=== PATIENT | female | born 1945 | race Caucasian/White ===

== ENCOUNTER → 2022-02-24 | Outpatient (CLI) | payer MEDICARE ==
--- NOTE | 2022-02-24 12:33 | XR ---
EXAMINATION TYPE: XR Hip Complete LT DATE OF EXAM: 02/24/2022 COMPARISON: NONE HISTORY: Pain TECHNIQUE: 2 views submitted FINDINGS: There is no evidence of erosive change or acute fracture. Severe degenerative disc disease L5-S1 with diffuse osteopenia. There is concentric narrowing of the hip joint. Calcification along the lateral margin of the acetabulum associated with a chronic acetabular labral tear. No acute fracture. IMPRESSION: 1. Diffuse osteopenia with mild arthropathy. 2. Calcification along the lateral margin of the acetabulum can be associated with chronic acetabular labral tear.
--- NOTE | 2022-02-24 12:35 | XR ---
EXAM TYPE: LUMBAR SPINE X RAY SERIES COMPARISON: NONE HISTORY: Pain TECHNIQUE: 4 views are submitted. FINDINGS: Alignment is anatomic. The pedicles are intact. The transverse processes are intact. There is ninfa re degenerative disc disease with complete loss of disc space and vacuum disc levels L1-S1 with multi level facet arthropathy and foraminal encroachments. Vascular calcifications are seen and there is ca lcification of the aorta with a maximal dimension of 3 cm suggestive of an aneurysm IMPRESSION: 1. Severe degenerative disc disease with complete loss of disc space at all levels. Multilevel facet arthropathy, canal stenosis and foraminal protrusion is recommended. 2. Findings suspicious for a 3 cm infrarenal abdominal aortic aneurysm
== END | disposition home or self-care (01) ==
LOC: RADXRYALE 11:16
PROVIDERS: ATTEND Physician Assistant
DX: M51.36 Other intervertebral disc degeneration, lumbar region (principal); M47.817 Spondylosis without myelopathy or radiculopathy, lumbosacral region; M85.852 Other specified disorders of bone density and structure, left thigh
CPT/HCPCS: 72110; 73502

== ENCOUNTER 2022-07-27 07:31 | Inpatient (IN) | payer MEDICARE ==
[2022-07-27] MEDS ORDERED: SODIUM CHLORIDE 0.9% 1,000 ML IV ONE (07:36)
[2022-07-27] MEDS ORDERED: MORPHINE SULFATE 4 MG/ML SYRINGE IVP STA (07:38)
[2022-07-27] MEDS ORDERED: DIPH,PERTUS(ACELL)TETVAC-LF 0.5 ML VIAL IM ONE (07:38)
--- NOTE | 2022-07-27 07:50 | ED ---
General Adult HPI - General Stated complaint: fall Time Seen by Provider: 07/27/22 07:36 Source: RN notes reviewed, old records reviewed - History of Present Illness Initial comments: Patient is a 76-year-old female with past medical history remarkable for chronic cervical pain, chronic debility ambulates with a walker at baseline, hypertension, who presents emergency Department complaining of a fall. She has had multiple falls this week. Patient also fell on Monday of this week for a neighbor heard her call for help and came and checked on her and helped her up then. States that she trips and falls due to her walker. She states her mechanical falls. She does not have a syncopal or fainting spell. States she does bump her head but denies any loss of consciousness or injuries to her head. Denies any new back pain but does endorse chronic sacral pain. Endorses left knee pain, left femur pain, left hip pain is somewhat chronic. She doesn't abrasion over the left knee as well as some bruising. Unknown last tetanus shot. Denies any abdominal pain, chest pain. Denies any upper back pain. Denies any right leg pain. Patient states she fell sometime yesterday and no one was able to find her until today. She has been down for approximately 21 hours. Presents for further evaluation at this time. - Related Data Home Medications Medication Instructions Recorded Confirmed Atorvastatin [Lipitor] 10 mg PO DAILY 07/27/22 07/27/22 Lisinopril-Hctz 20-25 mg 1 tab PO HS 07/27/22 07/27/22 [Zestoretic 20-25] Metoprolol Succinate (ER) [Toprol 50 mg PO DAILY 07/27/22 07/27/22 Xl] Allergies Allergy/AdvReac Type Severity Reaction Status Date / Time Penicillins Allergy Rash/Headac Verified 07/27/22 08:10 he Review of Systems ROS Statement: Those systems with pertinent positive or pertinent negative responses have been documented in the HPI. Review of Systems: CONST: Denies fever EYES: Denies blurry vision ENT: Denies nasal congestion C/V: Denies Chest pain RESP: Denies shortness of breath GI: Denies abdominal pain : Denies dysuria SKIN: Denies rash. MSK: Endorses sacral pain, left leg pain. NEURO: Denies headache ROS Other: All systems not noted in ROS Statement are negative. General Exam - General Exam Comments Initial Comments: General: Appears in mild to moderate distress. Secondary to left leg pain. HEAD: Normal with no signs of head trauma. EYES: PERRLA, EOMI, conjunctiva normal, no discharge. ENT: Hearing grossly intact, normal oropharynx. Dry mucous membranes. RESPIRATORY: Clear breath sounds bilaterally. No wheezes, rales, or rhonchi. C/V: Regular rate and rhythm. S1 and S2 auscultated, no edema, peripheral pulses 2+ and intact throughout ABD: Abd is soft, nontender, nondistended EXT: Reduced range of motion of the left knee secondary to pain. It is swollen. There is some bruising and some skin breakdown/tears over the anterior aspect of the left knee. Tenderness to palpation all over the knee, left femur, left hip. Chronic inferior sacral pain on palpation. States this is somewhat at her baseline. Pelvis is stable. No tenderness to palpation of the thoracic or cervical spines. No other obvious injuries. SKIN: No rashes or lesions observed on exposed skin. NEURO: Alert and oriented x 4. Cranial nerves II-XII intact. No focal sensory or strength deficits. GCS of 15. NIH is 0. Course Vital Signs 07/27/22 07/27/22 07/27/22 07:45 10:00 11:00 Temperature 98.0 F Pulse Rate 94 106 H 87 Respiratory 18 16 20 Rate Blood Pressure 147/80 167/90 151/77 O2 Sat by Pulse 97 98 Oximetry 07/27/22 07/27/22 13:27 14:11 Temperature 99.0 F Pulse Rate 87 87 Respiratory 16 16 Rate Blood Pressure 146/81 123/70 O2 Sat by Pulse 98 96 Oximetry Medical Decision Making - Medical Decision Making Was pt. sent in by a medical professional or institution (, PA, ORACLE APPLICATIONS ANALYST, urgent care, hospital, or penitentiary...) When possible be specific @ -No Did you speak to anyone other than the patient for history (EMS, parent, family, police, friend...)? What history was obtained from this source @ -No Did you review nursing and triage notes (agree or disagree)? Why? @ -I reviewed and agree with nursing and triage notes Were old charts reviewed (outside hosp., previous admission, EMS record, old EKG, old radiological studies, urgent care reports/EKG's, penitentiary records)? Report findings @ -No old charts were reviewed Differential Diagnosis (chest pain, altered mental status, abdominal pain women, abdominal pain men, vaginal bleeding, weakness, fever, dyspnea, syncope, hea dache, dizziness, GI bleed, back pain, seizure, CVA, palpatations, mental health, musculoskeletal)? @ -Bone fracture, contusion, intracranial injury, dehydration, acute kidney inj ury, rhabdomyolysis, dehydration, muscle strains, muscle sprains, mechanical fall. This list is not all inclusive. EKG interpreted by me (3pts min.). @ -As above X-rays interpreted by me (1pt min.). @ -X-rays of the chest, pelvis, left lower extremity showed an obvious left femoral neck impacted fracture. A later fracture of the left foot due to pain on reevaluation was negative for any obvious acute fracture. CT interpreted by me (1pt min.). @ -CT imaging the brain, cervical spine negative for any obvious acute injury or process. CT lumbar spine reveals chronic degenerative changes with no acute process. U/S interpreted by me (1pt. min.). @ -None done What testing was considered but not performed or refused? (CT, X-rays, U/S, labs)? Why? @ -None What meds were considered but not given or refused? Why? @ -None Did you discuss the management of the patient with other professionals (professionals i.e. , PA, ORACLE APPLICATIONS ANALYST, lab, RT, psych nurse, social services counselor, storage wharfage clerk, teacher, information assurance officer, block and case maker)? Give summary @ -Discuss the case with neck branches Dr. Myers's was scrubbed into a surgical case. She was accepted as an admission. I also discussed the case with Dr. Luna for medical management. Was smoking cessation discussed for >3mins.? @ -No Was critical care preformed (if so, how long)? @ -Yes, 35 minutes. Were there social determinants of health that impacted care today? How? (Homelessness, low income, unemployed, alcoholism, drug addiction, transportation, low edu. Level, literacy, decrease access to med. care, care home, rehab)? @ -No Was there de-escalation of care discussed even if they declined (Discuss DNR or withdrawal of care, Hospice)? DNR status @ -No What co-morbidities impacted this encounter? (DM, HTN, Smoking, COPD, CAD, Cancer, CVA, ARF, Chemo, Hep., AIDS, mental health diagnosis, sleep apnea, morbid obesity)? @ -Debility Was patient admitted / discharged? Hospital course, mention meds given and route, prescriptions, significant lab abnormalities, going to OR and other pe rtinent info. @ -Based on the patient's presentation and physical exam, she presents following a mechanical fall at home. Is complaining of acute on chronic left lower extremity pain. Appears to the left knee injury. We'll obtain CT brain, C-spine, as well as x-rays of the pelvis, left lower extremity. She was in agreement this plan. Basic labs to be obtained as she does appear dehydrated including a creatinine kinase. She'll be given IV fluids, a tetanus booster, as well as IV analgesia medications. Vital signs within acceptable limits. Patient was in agreement this plan. Patient's labs are remarkable for an elevated cranial kinase of 919. Patient appears dehydrated on labs otherwise. Otherwise no significant findings. Imaging negative for any acute traumatic injury except for the left femoral neck impacted fracture. I updated the patient. She remains having intact peripheral pulses and sensation. She'll be admitted to the hospital. I spoke with orthopedic surgery internal medicine nurse practitioner who accepted the patient to their service. I spoke with Ganga Galindo who answered for Dr. Myers who was scrubbed into a surgical case. I spoke with the medicine team Dr. Garcia to be consulted for medical management. They were in agreement with the plan. Undiagnosed new problem with uncertain prognosis? @ -No Drug Therapy requiring intensive monitoring for toxicity (Heparin, Nitro, Insulin, Cardizem)? @ -No Were any procedures done? @ -No Diagnosis/symptom? @ -Fall Acute, or Chronic, or Acute on Chronic? @ -Acute Uncomplicated (without systemic symptoms) or Complicated (systemic symptoms)? @ -Complicated Side effects of treatment? @ -none Exacerbation, Progression, or Severe Exacerbation] @ -no Poses a threat to life or bodily function? @ -no Diagnosis/symptom? @ -Left impacted femoral neck fracture Acute, or Chronic, or Acute on Chronic? @ -Acute Uncomplicated (without systemic symptoms) or Complicated (systemic symptoms)? @ -Complicated Side effects of treatment? @ -none Exacerbation, Progression, or Severe Exacerbation] @ -no Poses a threat to life or bodily function? @ -no Diagnosis/symptom? @ -Dehydration Acute, or Chronic, or Acute on Chronic? @ -Acute Uncomplicated (without systemic symptoms) or Complicated (systemic symptoms)? @ -Uncomplicated Side effects of treatment? @ -none Exacerbation, Progression, or Severe Exacerbation] @ -no Poses a threat to life or bodily function? @ -no Diagnosis/symptom? @ -Elevated creatinine kinase Acute, or Chronic, or Acute on Chronic? @ -Acute Uncomplicated (without systemic symptoms) or Complicated (systemic symptoms)? @ -Uncomplicated Side effects of treatment? @ -none Exacerbation, Progression, or Severe Exacerbation] @ -no Poses a threat to life or bodily function? @ -If untreated can result in Significant Morbidity and Mortality. - Lab Data Result diagrams: 07/27/22 08:06 07/27/22 08:06 Lab Results 07/27/22 07/27/22 07/27/22 Range/Units 08:06 08:06 08:06 WBC 9.2 (3.8-10.6) k/uL RBC 4.82 (3.80-5.40) m/uL Hgb 15.0 (11.4-16.0) gm/dL Hct 44.5 (34.0-46.0) % MCV 92.4 (80.0-100.0) fL MCH 31.2 (25.0-35.0) pg MCHC 33.8 (31.0-37.0) g/dL RDW 13.8 (11.5-15.5) % Plt Count 281 (150-450) k/uL MPV 8.2 Neutrophils % 86 % Lymphocytes % 6 % Monocytes % 6 % Eosinophils % 1 % Basophils % 0 % Neutrophils # 8.0 H (1.3-7.7) k/uL Lymphocytes # 0.6 L (1.0-4.8) k/uL Monocytes # 0.6 (0-1.0) k/uL Eosinophils # 0.0 (0-0.7) k/uL Basophils # 0.0 (0-0.2) k/uL PT 10.6 (9.0-12.0) sec INR 1.0 (<1.2) APTT 20.9 L (22.0-30.0) sec Sodium 138 (137-145) mmol/L Potassium 3.9 (3.5-5.1) mmol/L Chloride 101 (98-107) mmol/L Carbon Dioxide 23 (22-30) mmol/L Anion Gap 14 mmol/L BUN 27 H (7-17) mg/dL Creatinine 0.88 (0.52-1.04) mg/dL Est GFR (CKD-EPI)AfAm 75 (>60 ml/min/1.73 sqM) Est GFR (CKD-EPI)NonAf 65 (>60 ml/min/1.73 sqM) Glucose 167 H (74-99) mg/dL Calcium 9.6 (8.4-10.2) mg/dL Total Bilirubin 5.9 H (0.2-1.3) mg/dL AST 51 H (14-36) U/L ALT 28 (4-34) U/L Alkaline Phosphatase 132 H (38-126) U/L Creatine Kinase 919 H (30-135) U/L Total Protein 7.4 (6.3-8.2) g/dL Albumin 4.2 (3.5-5.0) g/dL Urine Color Urine Appearance (Clear) Urine pH (5.0-8.0) Ur Specific [place] (1.001-1.035) Urine Protein (Negative) Urine Glucose (UA) (Negative) Urine Ketones (Negative) Urine Blood (Negative) Urine Nitrite (Negative) Urine Bilirubin (Negative) Urine Urobilinogen (<2.0) mg/dL Ur Leukocyte Esterase (Negative) Urine RBC (0-5) /hpf Urine WBC (0-5) /hpf Urine Bacteria (None) /hpf Hyaline Casts (0-2) /lpf Urine Mucus (None) /hpf Blood Type Confirm 07/27/22 07/27/22 Range/Units 08:06 08:06 WBC (3.8-10.6) k/uL RBC (3.80-5.40) m/uL Hgb (11.4-16.0) gm/dL Hct (34.0-46.0) % MCV (80.0-100.0) fL MCH (25.0-35.0) pg MCHC (31.0-37.0) g/dL RDW (11.5-15.5) % Plt Count (150-450) k/uL MPV Neutrophils % % Lymphocytes % % Monocytes % % Eosinophils % % Basophils % % Neutrophils # (1.3-7.7) k/uL Lymphocytes # (1.0-4.8) k/uL Monocytes # (0-1.0) k/uL Eosinophils # (0-0.7) k/uL Basophils # (0-0.2) k/uL PT (9.0-12.0) sec INR (<1.2) APTT (22.0-30.0) sec Sodium (137-145) mmol/L Potassium (3.5-5.1) mmol/L Chloride (98-107) mmol/L Carbon Dioxide (22-30) mmol/L Anion Gap mmol/L BUN (7-17) mg/dL Creatinine (0.52-1.04) mg/dL Est GFR (CKD-EPI)AfAm (>60 ml/min/1.73 sqM) Est GFR (CKD-EPI)NonAf (>60 ml/min/1.73 sqM) Glucose (74-99) mg/dL Calcium (8.4-10.2) mg/dL Total Bilirubin (0.2-1.3) mg/dL AST (14-36) U/L ALT (4-34) U/L Alkaline Phosphatase (38-126) U/L Creatine Kinase (30-135) U/L Total Protein (6.3-8.2) g/dL Albumin (3.5-5.0) g/dL Urine Color Yellow Urine Appearance Clear (Clear) Urine pH 5.5 (5.0-8.0) Ur Specific [place] 1.024 (1.001-1.035) Urine Protein 2+ H (Negative) Urine Glucose (UA) 1+ H (Negative) Urine Ketones 3+ H (Negative) Urine Blood Moderate H (Negative) Urine Nitrite Negative (Negative) Urine Bilirubin Negative (Negative) Urine Urobilinogen <2.0 (<2.0) mg/dL Ur Leukocyte Esterase Negative (Negative) Urine RBC 5 (0-5) /hpf Urine WBC 1 (0-5) /hpf Urine Bacteria Rare H (None) /hpf Hyaline Casts 1 (0-2) /lpf Urine Mucus Rare H (None) /hpf Blood Type Confirm A Positive - EKG Data -: EKG Interpreted by Wy EKG Comments: 12-lead Electrocardiogram Interpretation Note EKG was reviewed and interpreted by myself. 12-lead ECG performed at 0748 is interpreted by me as revealing sinus tachycardia at a rate of 113 beats per minute. Left axis deviation. TN interval is 151 ms, QRS duration is 85 ms, QTc is 414 ms.. There were no ST or T wave abnormalities to suggest myocardial ischemia or injury. R wave progression across the precordium was satisfactory. By my interpretation this EKG is non-diagnostic for acute ischemia. No prior EKGs for comparison. Disposition Clinical Impression: Fall, Dehydration, Fracture of femoral neck, left, Elevated creatine kinase Disposition: ADMITTED IP TO THIS HOSP Condition: Stable Time of Disposition: 09:30
[2022-07-27 08:22] LABS: Basophils % (A) 0 %; Eosinophils % (A) 1 %; HCT 44.5 % (34.0-46.0); Lymphocytes # (A) 0.6 k/uL (1.0-4.8); Lymphocytes % (A) 6 %; MCH 31.2 pg (25.0-35.0); MCHC 33.8 g/dL (31.0-37.0); MCV 92.4 fL (80.0-100.0); Mean Platelet Volume 8.2; Monocytes # (A) 0.6 k/uL (0-1.0); Monocytes % (A) 6 %; Neutrophils % (A) 86 %; Platelet Count 281 k/uL (150-450); RBC 4.82 m/uL (3.80-5.40); RDW 13.8 % (11.5-15.5); WBC 9.2 k/uL (3.8-10.6)
[2022-07-27 08:30] LABS: Albumin 4.2 g/dL (3.5-5.0); Calcium 9.6 mg/dL (8.4-10.2); Potassium 3.9 mmol/L (3.5-5.1); Total Bilirubin 5.9 mg/dL (0.2-1.3); Total Protein 7.4 g/dL (6.3-8.2)
[2022-07-27 08:35] LABS: Prothrombin Time 10.6 sec (9.0-12.0)
--- NOTE | 2022-07-27 08:37 | CT ---
EXAMINATION TYPE: CT brain ramiro collazo DATE OF EXAM: 07/27/2022 COMPARISON: NONE HISTORY: Fall injury with headache and neck pain CT DLP: 1374.3 mGycm. Automated Exposure Control for Dose Reduction was Utilized. TECHNIQUE: CT scan of the head and cervical spine are performed without contrast. FINDINGS: There is no acute intracranial hemorrhage or midline shift identified. Mild ventricular a nd sulcal prominence with mild to moderate sulcal prominence greatest over the bilateral frontal lobe s. There is fairly severe low-attenuation in the deep and periventricular white matter. The calvarium is intact. The globes are intact and the visualized sinuses are clear. Cervical spine is visualized in its entirety from C1 through upper thoracic levels and demonstrates s atisfactory alignment without evidence of acute fracture or dislocation. Prevertebral soft tissue ap pears within normal limits. The C1-C2 articulation is within normal limits on the coronal images. V ertebral body heights are maintained. There is [id number] disc space narrowing with moderate po sterior spurring at C4-C5 level. Review of axial images shows multilevel uncovertebral facet degenerative changes contribute to multil evel bilateral neural foraminal narrowing fairly severe in appearance of bilateral C3-C4 and C4-C5 an d right C5-C6 and C6-C7 levels. There is posterior spur disc complex and posterior spurring effaces t he anterior thecal sac at C3-C4 and C4-C5 levels. Thyroid gland appears within normal limits. Lung ap ices show no pneumothorax. IMPRESSION: 1. There is no acute fracture or dislocation evident in the cervical spine. 2. No acute intracranial hemorrhage or midline shift is seen. [id number] diffuse cerebral atrop hy greatest over the bilateral frontal lobes and severe nonspecific white matter changes favor produc t of chronic small vessel ischemia are noted.
[2022-07-27 08:40] LABS: Partial Thromboplastin Time 20.9 sec (22.0-30.0)
--- NOTE | 2022-07-27 08:43 | CT ---
EXAMINATION TYPE: CT lumbar spine wo con DATE OF EXAM: 07/27/2022 8:29 AM COMPARISON: Lumbar spine x-ray February 24, 2022 HISTORY: Fall injury with low back pain CT DLP: 665.7 mGycm Automated exposure control for dose reduction was used. Unenhanced CT of the lumbar spine was performed. Bone and soft tissue window settings are submitted as well as coronal and sagittal reconstructions. There are 5 lumbar type vertebra redemonstrated. There is persistent levoconvex scoliosis centered at L4-L5 level. Vertebral body heights are preserved. There is moderate to severe multilevel disc space narrowing and multilevel vacuum disc phenomenon redemonstrated. There is moderate multilevel anterio r and lateral spurring redemonstrated. Axial images at T12-L1 show [id number] facet arthropathy effacing the posterior thecal sac. Axial images at L1-L2 level shows moderate broad-based disc bulge effacing the anterior thecal sac an d moderate facet arthropathy effacing the posterolateral thecal sac. Axial images at L2-L3 level show posterior spurring effacing the anterior thecal sac and moderate fac et arthropathy effacing the posterolateral thecal sac. There is likely some left-sided neural foramin al narrowing. Axial images at L3-L4 level show moderate to severe right facet arthropathy effacing the right latera l thecal sac. There is mild broad disc bulge effacing the anterior thecal sac. Bilateral neural dontrell inal narrowing is felt present. Axial images at the L4-L5 level mild to moderate broad disc bulge effacing the anterior thecal sac. T here is [id number] right greater than left facet arthropathy and ligamentum flavum hypertrophy effacing the posterolateral thecal sac. Bilateral neural foraminal narrowing is present. Axial images at L5-S1 level shows moderate facet arthropathy bilaterally. There is posterior spur dis c complex. There is bilateral neural foraminal narrowing. There is large exophytic thin-walled renal cyst partially imaged measuring at least 9.5 cm in size. T here is a smaller 3.6 cm simple appearing thin-walled cyst laterally lower pole of the left kidney. T here is moderate calcified plaque of the ectatic abdominal aorta with small focal aneurysm at 3.0 cm transversely axial image 43 noted. IMPRESSION: No acute fracture or dislocation in the lumbar spine. Scoliosis and multilevel degenerati ve changes are noted as detailed above
--- NOTE | 2022-07-27 09:23 | XR ---
EXAMINATION TYPE: XR femur LT, XR tibia fibula LT, XR Hip LT and AP Pelvis, XR knee limited LT DATE OF EXAM: 07/27/2022 CLINICAL HISTORY: Pelvic and left hip and leg along with knee pain after fall injury. TECHNIQUE: A single AP view of the pelvis is obtained. Two views of the left hip and femur and leg an d knee are obtained. COMPARISON: Prior left hip x-ray February 24, 2022. FINDINGS: There is acute comminuted impacted displaced fracture through the basicervical region of the femoral neck left proximal femur. No additional acute displaced fracture in the pelvis. Metallic right hip pr osthesis is partially imaged. No acute displaced fracture in the remainder of the left femur. Overlying soft tissue is unremarkable . Severe narrowing medial tibiofemoral compartment on the right knee. There are posterior round ossif ications possible bony formation within popliteal cyst. No acute displaced fracture in the left knee. Images of the left leg show no acute displaced fracture. Osseous structures are demineralized. Visual ized left ankle joint is within normal limits. Overlying soft tissue is unremarkable. IMPRESSION: There is acute impacted femoral neck fracture left proximal femur.
[2022-07-27] MEDS ORDERED: SODIUM CHLORIDE 0.9% 1,000 ML IV STA ×2 (09:25)
--- NOTE | 2022-07-27 09:27 | XR ---
EXAMINATION TYPE: XR chest 1V DATE OF EXAM: 07/27/2022 COMPARISON: NONE HISTORY: Pain TECHNIQUE: Single frontal view of the chest is obtained. FINDINGS: There is no focal air space opacity, pleural effusion, or pneumothorax seen. The cardiac silhouette size is within normal limits. The osseous structures are intact. Arthropathy of the shou lders. Diffuse osteopenia. A chronic deformity of the posterior lateral right rib cage. Calcification s in the axilla are noted. IMPRESSION: No acute process.
[2022-07-27] MEDS ORDERED: NALOXONE 0.4 MG/ML 1 ML VIAL IV PRN (09:38)
[2022-07-27 10:48] LABS: Appearance,Urine Clear (Clear); Bacteria,Urine Rare /hpf; Bilirubin,Urine Negative (Negative); Blood,Urine Moderate (Negative); Color,Urine Yellow; Glucose,Urine (UA) 1+ (Negative); Hyaline Casts,Urine 1 /lpf (0-2); Leukocyte Esterase,Urine Negative (Negative); Mucus,Urine Rare /hpf; Nitrite,Urine Negative (Negative); PH, Urine 5.5 (5.0-8.0); Protein,Urine 2+ (Negative); RBC,Urine 5 /hpf (0-5); Specific Gravity,Urine 1.024 (1.001-1.035); Urobilinogen,Urine <2.0 mg/dL (<2.0); WBC,Urine 1 /hpf (0-5)
[2022-07-27 10:52] LABS: Ketones,Urine 3+ (Negative)
--- NOTE | 2022-07-27 11:20 | XR ---
EXAMINATION TYPE: XR foot limited LT DATE OF EXAM: 07/27/2022 COMPARISON: NONE there is arthropathy of the MTP and DIP joints first digit. Distal phalanges not wel l seen due to flexion positioning. HISTORY: Pain TECHNIQUE: Two views are submitted. FINDINGS: Diffuse osteopenia. Subcutaneous edema. No definite acute fracture. IMPRESSION: 1. Diffuse osteopenia with no definite acute fracture
--- NOTE | 2022-07-27 11:54 | P.HPOR ---
History of Present Illness H&P Date: 07/27/22 Chief Complaint: Left femoral neck fracture Patient is a 76-year-old female was brought in to [facility] emergency room today after being found on the ground for over a day. Patient apparently fell in her home, she was unable to contact anyone, and they were found her earlier this morning. Patient states that she did have a fall on Monday required to have helped into a chair, she then fell again later Monday. Patient noted immediate pain and deformity to the left lower extremity, she is brought to the hospital by EMS for further evaluation. Multiple lab tests and imaging test were done. Images were notable for a impacted left femoral neck fracture. I was contacted by the emergency room staff regarding the patient. I was able to review the images and my attending Dr. Myers who was scrubbed and the surgery at this time. Patient was admi tted under our orthopedic care with plans for likely surgical intervention. Patient was evaluated at bedside, she is resting comfortably. She notes notable discomfort in the left lower extremity with movement. She's having no other orthopedic complaints at this time. She denies any new onset cervical, thoracic or lumbar pain. She does have a history of right hip surgery that was done about 6 or 7 years ago for a fracture. Patient does live alone, she utilizes a walker for ambulation. She does still drive occasionally she states per Review of Systems Constitutional: Reports as per HPI Past Medical History Past Medical History: Hypertension History of Any Multi-Drug Resistant Organisms: None Reported Past Surgical History: Orthopedic Surgery Past Psychological History: No Psychological Hx Reported Smoking Status: Never smoker Past Alcohol Use History: None Reported Past Drug Use History: None Reported Medications and Allergies Home Medications Medication Instructions Recorded Confirmed Type Atorvastatin [Lipitor] 10 mg PO DAILY 07/27/22 07/27/22 History Lisinopril-Hctz 20-25 mg 1 tab PO HS 07/27/22 07/27/22 History [Zestoretic 20-25] Metoprolol Succinate (ER) [Toprol 50 mg PO DAILY 07/27/22 07/27/22 History Xl] Allergies Allergy/AdvReac Type Severity Reaction Status Date / Time Penicillins Allergy Rash/Headac Verified 07/27/22 08:10 he Physical Examination Left lower extremity: Obvious shortening and external rotation of the extremity is noted when compared to the contralateral side. There is no obvious open lesions or sores present throughout the extremity No significant areas of ecchymosis or soft tissue swelling present Tenderness with palpation of the proximal femur as noted, logroll maneuver reproduces pain. She's unable to straight leg raise at this time Range of motion of the knee was not assessed due to pain at the hip, no significant tenderness with palpation surrounding the knee, lower leg, foot or ankle Plantar flexion, dorsiflexion, EHL, FHL are intact Her sensory exam to light touch is intact about extremity, her skin is warm to touch Results - Labs Labs: Abnormal Lab Results - Last 24 Hours (Table) 07/27/22 07/27/22 07/27/22 Range/Units 08:06 08:06 08:06 Neutrophils # 8.0 H (1.3-7.7) k/uL Lymphocytes # 0.6 L (1.0-4.8) k/uL APTT 20.9 L (22.0-30.0) sec BUN 27 H (7-17) mg/dL Glucose 167 H (74-99) mg/dL Total Bilirubin 5.9 H (0.2-1.3) mg/dL AST 51 H (14-36) U/L Alkaline Phosphatase 132 H (38-126) U/L Creatine Kinase 919 H (30-135) U/L Urine Protein (Negative) Urine Glucose (UA) (Negative) Urine Ketones (Negative) Urine Blood (Negative) Urine Bacteria (None) /hpf Urine Mucus (None) /hpf 07/27/22 Range/Units 08:06 Neutrophils # (1.3-7.7) k/uL Lymphocytes # (1.0-4.8) k/uL APTT (22.0-30.0) sec BUN (7-17) mg/dL Glucose (74-99) mg/dL Total Bilirubin (0.2-1.3) mg/dL AST (14-36) U/L Alkaline Phosphatase (38-126) U/L Creatine Kinase (30-135) U/L Urine Protein 2+ H (Negative) Urine Glucose (UA) 1+ H (Negative) Urine Ketones 3+ H (Negative) Urine Blood Moderate H (Negative) Urine Bacteria Rare H (None) /hpf Urine Mucus Rare H (None) /hpf H & H 07/27/22 Range/Units 08:06 Hgb 15.0 (11.4-16.0) gm/dL Hct 44.5 (34.0-46.0) % Coagulation 07/27/22 Range/Units 08:06 INR 1.0 (<1.2) Result Diagrams: 07/27/22 08:06 07/27/22 08:06 - Diagnostic results Hip x-ray: report reviewed, image reviewed (Images reviewed of the AP pelvis along with left hip. Images demonstrate an impacted and displaced left femoral neck fracture. Right hip prosthesis appears intact with no obvious lucencies) Knee x-ray: report reviewed, image reviewed (Left knee x-rays were reviewed, no acute fractures or dislocations. Severe osteoarthritis is noted throughout) Assessment and Plan Assessment: Left femoral neck fracture Left knee osteoarthritis Status post recent fall, significant time down on the ground Other medical comorbidities Plan: After discussion with attending Dr. Myers, patient was admitted under orthopedic care with plan for surgical intervention I did discuss treatment options today with patient at bedside, just to include the preoperative, perioperative postoperative period we discussed risk and benefits, this include but not exclude blood loss, infection, development of blood clots, neurovascular injury, pain and stiffness, inadequate healing, possible need for further surgeries. Patient is a good understanding and would like to proceed. Plan is to proceed with a direct anterior total hip arthroplasty on the left side, we are planning for surgery from 07/28/2022. Consent to be obtained prior to procedure Medical recommendations Nothing by mouth after midnight Nonweightbearing left lower extremity at this time Maintain urinary catheter at this time Pain control, oral and IV as needed. Will utilize multiple stool softeners to help avoid constipation DVT prophylaxis, we'll begin subcu medication PT/OT after surgery Anticipate subcu rehab placement Time with Patient: Less than 30
[2022-07-27] MEDS ORDERED: traMADol 50 MG TAB PO PRN (12:24)
[2022-07-27] MEDS: MORPHINE SULFATE 4 MG/ML SYRINGE IV PRN (15:12)
--- NOTE | 2022-07-27 15:22 | P.HPIM ---
History of Present Illness H&P Date: 07/27/22 Patient is a 76-year-old female with history of hypertension and dyslipidemia presenting after a mechanical fall. She claims that she was doing well until Monday when she had a mechanical fall. She was able to get help from her friend and was able to get inside the house. She had another mechanical fall on Monday night in her mobile home. She was on the floor from Monday night till Monday morning, when she screamed for help and her neighbor had come in to help. She normally ambulates with a walker. She denies any chest pain, shortness of breath, abdominal pain, nausea, vomiting, diarrhea, constipation, or urinary complaints. She feels like she is bruised on her left hip area. In the ED, vital signs were within normal limits. Laboratory workup was significant for WBC of 9.2, hemoglobin 15, sodium 138, potassium 3.9, BUN 27, creatinine 0.88, glucose 167, total bili 5.9, AST 51, ALP 132, CK 919, urinalysis significant for elevated ketones, blood, RBCs only 5. Patient was started on IV fluids. Head CT and cervical CT showed no acute fracture. Lumbar CT showed no acute fractures, left hip x-ray showed acute impacted femoral neck fracture. Left foot x-ray showed no acute fracture. Chest x-ray personally interpreted showed no acute process. Patient seen and examined at bedside. Pertinent positives and negatives as discussed in HPI, a complete review of systems was performed and all other systems are negative. Vital signs reviewed General: nontoxic, no distress, appears at stated age Derm: warm, dry Head: atraumatic, normocephalic, symmetric Eyes: EOMI, no lid lag, anicteric sclera, pupils equal round reactive to light ENT: Nose and ears atraumatic Neck: No thyromegaly, supple Mouth: no lip lesion, mucus membranes moist Cardiovascular: S1S2 reg, no murmur, no edema Lungs: clear to auscultation bilateral, no rhonchi, no rales, no wheeze, no accessory muscle use Abdominal: soft, nontender to palpation, no guarding, no appreciable organ omegaly Ext: no gross muscle atrophy, unable to move left lower extremity due to pain, externally rotated Neuro: CN II-XII grossly intact Psych: Alert, oriented, appropriate affect Assessment/Plan: Active: Mild rhabdomyolysis Hyperbilirubinemia Elevated AST and ALP Mild dehydration Mechanical fall Acute impacted left femoral neck fracture -Continue normal saline at 130 mL an hour -Repeat CK ordered, trend until it peaks -Hyperbilirubinemia, elevated AST and ALP the setting of rhabdomyolysis and acute fracture -Continue to monitor renal function, CMP ordered for tomorrow -Orthopedics consulted, note reviewed: Likely surgical intervention on 07/28 -Hydrochlorothiazide being held, in anticipation of surgery -Pain control with IV morphine 4 mg every 4 hours as needed, oral [place] 5 every 6 hours as needed, Tylenol 650 mg oral every 6 hours as needed, tramadol 50 mg oral 4 times a day as needed Chronic: Hypertension Dyslipidemia The patient is admitted with an anticipated greater than 2 midnight stay for evaluation of acute impacted left femoral fracture. Case discussed with ED attending. Surrogate decision-maker: Friend CODE STATUS: Full code DVT prophylaxis: Subcu heparin Anticipated discharge date: Pending clinical course Anticipated discharge place: Pending clinical course A total of 55 minutes was spent on the care of this complex patient more than 50% of the time was spent in counseling and care coordination. Past Medical History Past Medical History: Hypertension History of Any Multi-Drug Resistant Organisms: None Reported Past Surgical History: Orthopedic Surgery Past Psychological History: No Psychological Hx Reported Smoking Status: Never smoker Past Alcohol Use History: None Reported Past Drug Use History: None Reported Medications and Allergies Home Medications Medication Instructions Recorded Confirmed Type Atorvastatin [Lipitor] 10 mg PO DAILY 07/27/22 07/27/22 History Lisinopril-Hctz 20-25 mg 1 tab PO HS 07/27/22 07/27/22 History [Zestoretic 20-25] Metoprolol Succinate (ER) [Toprol 50 mg PO DAILY 07/27/22 07/27/22 History Xl] Allergies Allergy/AdvReac Type Severity Reaction Status Date / Time Penicillins Allergy Rash/Headac Verified 07/27/22 08:10 he Physical Exam Vitals: Vital Signs Temp Pulse Resp BP Pulse Ox 07/27/22 15:10 98.6 F 86 17 124/69 98 07/27/22 14:11 87 16 123/70 96 07/27/22 13:27 99.0 F 87 16 146/81 98 07/27/22 11:00 87 20 151/77 07/27/22 10:00 106 H 16 167/90 98 07/27/22 07:45 98.0 F 94 18 147/80 97 Intake and Output 07/27/22 07/27/22 07/27/22 06:59 14:59 22:59 Other: Weight 72.575 kg Results CBC & Chem 7: 07/27/22 08:06 07/27/22 08:06 Labs: Abnormal Lab Results - Last 24 Hours (Table) 07/27/22 07/27/22 07/27/22 Range/Units 08:06 08:06 08:06 Neutrophils # 8.0 H (1.3-7.7) k/uL Lymphocytes # 0.6 L (1.0-4.8) k/uL APTT 20.9 L (22.0-30.0) sec BUN 27 H (7-17) mg/dL Glucose 167 H (74-99) mg/dL Total Bilirubin 5.9 H (0.2-1.3) mg/dL AST 51 H (14-36) U/L Alkaline Phosphatase 132 H (38-126) U/L Creatine Kinase 919 H (30-135) U/L Urine Protein (Negative) Urine Glucose (UA) (Negative) Urine Ketones (Negative) Urine Blood (Negative) Urine Bacteria (None) /hpf Urine Mucus (None) /hpf 07/27/22 Range/Units 08:06 Neutrophils # (1.3-7.7) k/uL Lymphocytes # (1.0-4.8) k/uL APTT (22.0-30.0) sec BUN (7-17) mg/dL Glucose (74-99) mg/dL Total Bilirubin (0.2-1.3) mg/dL AST (14-36) U/L Alkaline Phosphatase (38-126) U/L Creatine Kinase (30-135) U/L Urine Protein 2+ H (Negative) Urine Glucose (UA) 1+ H (Negative) Urine Ketones 3+ H (Negative) Urine Blood Moderate H (Negative) Urine Bacteria Rare H (None) /hpf Urine Mucus Rare H (None) /hpf
[2022-07-27] MEDS ORDERED: HEPARIN SODIUM,PORCINE/PF 5,000 UNIT/0.5 ML SYRINGE SQ SCH ×2 (16:00→21:00)
[2022-07-27] MEDS: HYDROcodone/APAP 5-325MG 1 EACH TAB PO PRN (20:34)
[2022-07-27] MEDS ORDERED: LISINOPRIL-HCTZ 20-25 MG 1 EACH TAB PO SCH (21:00)
[2022-07-28] MEDS: HYDROcodone/APAP 5-325MG 1 EACH TAB PO PRN ×2 (02:15→21:35)
[2022-07-28] MEDS: lisinopriL 20 MG TAB PO SCH (09:05)
[2022-07-28] MEDS: MORPHINE SULFATE 4 MG/ML SYRINGE IV PRN (09:05)
[2022-07-28] MEDS: ATORVASTATIN 10 MG TAB PO SCH (09:05)
[2022-07-28] MEDS: METOPROLOL SUCCINATE (ER) 50 MG TAB.ER.24H PO SCH (09:05)
[2022-07-28 09:35] LABS: Basophils # (A) 0.04 X 10*3/uL (0.00-0.10); Basophils % (A) 0.5 %; Eosinophils # (A) 0.18 X 10*3/uL (0.04-0.35); Eosinophils % (A) 2.4 %; HCT 35.6 % (37.2-46.3); Immature Grans, Automated 0.1 %; Lymphocytes # (A) 1.46 X 10*3/uL (0.90-5.00); Lymphocytes % (A) 19.5 %; MCH 31.7 pg (27.0-32.0); MCHC 33.7 g/dL (32.0-37.0); MCV 93.9 fL (80.0-97.0); Mean Platelet Volume 10.9 fL (9.5-12.2); Monocytes # (A) 0.71 X 10*3/uL (0.20-1.00); Monocytes % (A) 9.5 %; NRBC Per 100 WBC 0 /100 WBCS (0.0-0.0); Neutrophils # (A) 5.09 X 10*3/uL (1.80-7.70); Platelet Count 277 X 10*3/uL (140-440); RBC 3.79 X 10*6/uL (4.10-5.20); RDW 14.7 % (11.5-14.5); WBC 7.49 X 10*3/uL (4.50-10.00)
[2022-07-28 10:09] LABS: African American GFR (CKD) 58.6 (60.0-200.0); Albumin/Globulin Ratio 1.46 (1.60-3.17); Anion Gap 11.7 mmol/L (10.00-18.00); BUN/Creat Ratio 27.22 Ratio (12.00-20.00); Blood Urea Nitrogen 29.4 mg/dL (9.0-27.0); Calcium 8.7 mg/dL (8.7-10.3); Carbon Dioxide 21.5 mmol/L (20.0-27.5); Globulin 2.1 g/dL (1.6-3.3); Non-African American GFR(CKD) 50.5 (60.0-200.0); Potassium 3.6 mmol/L (3.5-5.5); Total Bilirubin 2.1 mg/dL (0.30-1.20); Total Protein 5.1 g/dL (6.2-8.2)
[2022-07-28] MEDS ORDERED: HYDROmorphone 1 MG/ML 1 ML SYRINGE IVP PRN (10:15)
--- NOTE | 2022-07-28 13:11 | P.PN ---
Subjective Progress Note Date: 07/28/22 Subjective: Patient seen and examined at bedside. No acute events overnight. Continues to have significant left hip pain. Denies any chest pain, shortness of breath, abdominal pain, nausea, vomiting, diarrhea, constipation, urinary complaints. Pertinent positives and negatives as discussed above, a complete review of systems was performed and all other systems are negative. Vitals Signs Reviewed. General: nontoxic, no distress, appears at stated age Derm: warm, dry Head: atraumatic, normocephalic, symmetric Eyes: EOMI, no lid lag, anicteric sclera, pupils equal round reactive to light ENT: Nose and ears atraumatic Neck: No thyromegaly, supple Mouth: no lip lesion, mucus membranes moist Cardiovascular: S1S2 reg, no murmur, no edema Lungs: clear to auscultation bilateral, no rhonchi, no rales, no wheeze, no accessory muscle use Abdominal: soft, nontender to palpation, no guarding, no appreciable organomegaly Ext: no gross muscle atrophy, unable to move left lower extremity due to pain, externally rotated Neuro: CN II-XII grossly intact Psych: Alert, oriented, appropriate affect Data reviewed today: Laboratory data: WBC 7.49, hemoglobin 12, sodium 142, BUN 29, creatinine 1.1, total bili 2.1, CK 250 Assessment and Plan: Active: Mild rhabdomyolysis Hyperbilirubinemia Mild dehydration Mechanical fall Acute impacted left femoral neck fracture -Continue normal saline at 130 mL an hour -CK levels down trending -Hyperbilirubinemia, elevated AST and ALP the setting of rhabdomyolysis and acute fracture, down trending -Renal function slightly worsening, continued to trend -Hydrochlorothiazide being held, in anticipation of surgery -Pain control with IV morphine 4 mg every 4 hours as needed, also Dilaudid 1 mg IV every 4 hours as needed for breakthrough pain, oral [place] 5 every 6 hours as needed, Tylenol 650 mg oral every 6 hours as needed, tramadol 50 mg oral 4 times a day as needed -Likely surgical intervention today Resolved: Elevated AST and ALP Chronic: Hypertension Dyslipidemia Thank you for allowing us to participate in the care of this pleasant patient. Do not hesitate to contact us with questions. Someone can be reached from the [facility] [place] hospitalist group all hours of the day at [phone] or via perfect serve. Objective - Vital Signs Vital signs: Vital Signs Temp 98.0 F 07/28/22 10:01 Pulse 68 07/28/22 10:01 Resp 16 07/28/22 10:01 BP 116/68 07/28/22 10:01 Pulse Ox 98 07/28/22 10:01 FiO2 Intake & Output 07/27/22 07/28/22 07/28/22 18:59 06:59 18:59 Intake Total 920 Output Total 600 500 Balance -600 420 Weight 72.575 kg Intake: Intake, IV Titration 600 Amount Sodium Chloride 0.9% 1, 600 000 ml @ 130 mls/hr IV . [id number] STA Rx#:[id number] Oral 320 Output: Urine 600 500 Uretheral (Chand) 200 Other: Voiding Method Indwelling Catheter - Labs CBC & Chem 7: 07/28/22 06:39 07/28/22 06:39 Labs: Abnormal Lab Results - Last 24 Hours (Table) 07/28/22 07/28/22 Range/Units 06:39 06:39 RBC 3.79 L (4.10-5.20) X 10*6/uL Hct 35.6 L (37.2-46.3) % RDW 14.7 H (11.5-14.5) % BUN 29.4 H (9.0-27.0) mg/dL Est GFR (CKD-EPI)AfAm 58.6 L (60.0-200.0) Est GFR (CKD-EPI)NonAf 50.5 L (60.0-200.0) BUN/Creatinine Ratio 27.22 H (12.00-20.00) Ratio Total Bilirubin 2.10 H (0.30-1.20) mg/dL Creatine Kinase 250 H (26-186) U/L Total Protein 5.1 L (6.2-8.2) g/dL Albumin 3.0 L (3.8-4.9) g/dL Albumin/Globulin Ratio 1.46 L (1.60-3.17) g/dL
[2022-07-28] MEDS ORDERED: LACTATED RINGERS 1,000 ML IV ONE (14:46)
[2022-07-28] MEDS ORDERED: fentaNYL (PF) 50 MCG/1 ML VIAL IV ONE (14:49)
[2022-07-28] MEDS ORDERED: ONDANSETRON 4 MG/2 ML VIAL ONE (14:55)
[2022-07-28] MEDS ORDERED: TRANEXAMIC ACID 1,000 MG in SODIUM CHLORIDE 0.9% 100 ML IVPB PRN (15:22)
[2022-07-28] MEDS ORDERED: ePHEDrine 50 MG/ML 1 ML VIAL ONE (15:30)
[2022-07-28] MEDS ORDERED: TRANEXAMIC ACID IN NACL,ISO-OS 1,000 MG/100 ML BAG ONE (15:30)
[2022-07-28] MEDS ORDERED: MIDAZOLAM 2 MG/2 ML VIAL ONE (15:30)
[2022-07-28] MEDS ORDERED: KETAMINE 10 MG/ML 20 ML VIAL ONE (15:30)
[2022-07-28] MEDS ORDERED: fentaNYL (PF) 50 MCG/ML 2 ML AMP ONE (15:30)
[2022-07-28] MEDS ORDERED: PROPOFOL 10 MG/ML 20 ML VIAL IV ONE (15:30)
--- NOTE | 2022-07-28 17:00 | P.OP ---
Date of Procedure: 07/28/22 Preoperative Diagnosis: Displaced comminuted left hip femoral neck fracture Postoperative Diagnosis: Displaced comminuted left hip femoral neck fracture Procedure(s) Performed: Direct anterior left total hip arthroplasty Implants: 1. Depuy Corail size 14 135 standard collar press-fit femoral stem 2. Depuy pinnacle 54 mm multi hole press-fit acetabular shell 3. Depuy pinnacle neutral polyethylene acetabular liner 36 mm ID 54 mm OD 4. Biolox delta ceramic femoral head +1.5 36 mm Anesthesia: spinal Surgeon: Alec Myers Oxidation Operator #1: Alok Galindo Estimated Blood Loss (ml): 40 Pathology: other (Femoral head) Condition: stable Disposition: PACU Indications for Procedure: 76-year-old patient seen with a displaced comminuted left hip femoral neck fracture. We discussed total hip arthroplasty. I reviewed the procedure, risks, complications and recovery. Patient was agreeable. Consent was obtained. Operative Findings: See description of procedure Description of Procedure: The patient was taken to the operative suite. Patient underwent a spinal anesthetic by the department of anesthesia. Patient was then transferred to the [place] table. Patient was given preoperative IV antibiotics and TXA. Both lower extremities were placed in standard leg spars. The hip was then prepped and draped in the normal sterile orthopedic fashion. A standard anterior incision was made beginning 3 cm lateral and 1 cm distal to the ASIS extending 10 cm. Dissection was then carried down through the subcutaneous soft tissues down to the fascia overlying the tensor fascia zackary. An incision was now made through the fascia. Careful dissection was taken down exposing the tensor fascia zackary muscle. A Cobra retractor was now placed along the medial femoral neck and a second one along the lateral femoral neck. The venous circumflex vessels were now identified, cauterized and clipped. We identified the anterior hip capsule. An incision was made through the hip capsule along the lateral border. I performed a partial anterior capsulectomy. I immediately encountered a hemarthrosis consistent with her fracture. We noted a very comminuted femoral neck fracture with significant displacement. I utilized the sagittal saw to resect some residual femoral neck. I then introduced the corkscrew into the femoral head and I was able to retrieve without difficulty. We did note some moderate osteoarthritis of the femoral head and acetabulum. I placed retractors around the acetabulum. The extremity was now rotated to 60 of external rotation. It was locked in position. Residual labrum was now debrided out. Serial reaming was performed of the acetabulum while Ganga SHI assisted holding an anterior retractor for exposure. Once we reached the appropriate size and a trial was position and fit nicely. The appropriate size was now chosen opened and made available. It was introduced into the acetabulum without difficulty. The C-arm/fluoroscopy was now brought into the operative field. We made sure we had a true AP pelvic view. We now under direct C-arm/fluoroscopy introduced into the acetabular component with appropriate version and inc lination. I held the cup in appropriate position well Ganga SHI used a mallet to seat the acetabular component. I noted the component now to be well seated and stable. Acetabular cup introduce her was removed. The C-arm was pulled back. An appropriate liner was introduced and clicked into position. It was felt to be stable. At this point retractors were removed. The extremity was now placed into 140 external rotation with no traction. The leg was now dropped to the ground and adducted. Appropriate retractors were now positioned along the proximal femur. We also placed our femoral look into position. Additional capsular releasing was performed to gain access to the proximal femur. We now used a box osteotome. A canal finder was now utilized. Serial broaching was now performed with the assistance of Ganga SHI tapping the broaches down with a mallet while held the broach in appropriate rotation and position. This was done until we reached the appropriate size with good overall rotational stability. Appropriate calcar planing was performed. A trial head/neck was placed into position. The hip was now reduced. The C- arm/fluoroscopy was brought back into the operative field. I obtained AP pelvis was demonstrated adequate leg length alignment. The trial components appeared adequately sized and positioned. The C-arm/fluoroscopy was pulled back. Retrac tors were repositioned and the hip was dislocated. The leg was again taken down to the ground and adducted. Appropriate retractors were repositioned as well as the femoral hook. All trial components were removed. The femoral implant was opened along with the femoral head. The femoral implant was introduced on the appropriate handle into our pre-broached area. I held the component position we ll Ganga SHI used a mallet to seat the femoral component. The femoral component was now noted to be well seated and stable.. The femoral head was introduced with good positioning and fixation noted. Retractors were now removed. The hip was now reduced. There appeared be good positioning of the hip confirmed on intraoperative fluoroscopy. Spot films were obtained to document this. A second gram of TXA was given. The deep and superficial soft tissues were infiltrated with local analgesic. Bipolar cautery had been utilized intermittently through the procedure for hemostasis. The wound was irrigated copiously with pulse lavage mechanical irrigation. The fascia was repaired with Vicryl suture. The subcutaneous soft tissues were repaired in layers with Vicryl suture. The skin was approximated with pernio/Dermabond. Sterile dressings were applied. Patient was then awakened, transferred to a bed and taken to recovery in stable condition. Ganga SHI assisted with the com plex procedure.
[2022-07-28] MEDS ORDERED: NALOXONE 0.4 MG/ML 1 ML VIAL IV PRN (17:02)
[2022-07-28] MEDS ORDERED: ONDANSETRON 4 MG/2 ML VIAL IVP PRN (17:02)
[2022-07-28] MEDS ORDERED: HYDROmorphone 0.5 MG/0.5 ML SYRINGE IVP PRN ×3 (17:02)
--- NOTE | 2022-07-28 17:50 | XR ---
Intraoperative/procedural fluoroscopic services were provided. Total fluoroscopy time is 10 seconds w ith a total of 2 submitted images to PACS. Please see the operative/procedural note for further mike bella. DAP: [id number]
[2022-07-28] MEDS: SODIUM CHLORIDE 0.9% 1,000 ML IV SCH (18:34)
[2022-07-28] MEDS: SENNOSIDES-DOCUSATE SODIUM 1 EACH TAB PO SCH (20:23)
[2022-07-29] MEDS: HYDROcodone/APAP 5-325MG 1 EACH TAB PO PRN ×3 (04:10→16:55)
[2022-07-29] MEDS: METOPROLOL SUCCINATE (ER) 50 MG TAB.ER.24H PO SCH (08:36)
[2022-07-29] MEDS: ATORVASTATIN 10 MG TAB PO SCH (08:36)
[2022-07-29] MEDS: ENOXAPARIN 40 MG/0.4 ML SYRINGE SQ SCH (08:36)
[2022-07-29] MEDS: lisinopriL 20 MG TAB PO SCH (08:36)
[2022-07-29 09:29] LABS: African American GFR (CKD) 57.3 (60.0-200.0); Anion Gap 12.5 mmol/L (10.00-18.00); BUN/Creat Ratio 29.18 Ratio (12.00-20.00); Blood Urea Nitrogen 32.1 mg/dL (9.0-27.0); Calcium 8.7 mg/dL (8.7-10.3); Carbon Dioxide 20.5 mmol/L (20.0-27.5); Magnesium 1.8 mg/dL (1.5-2.4); Non-African American GFR(CKD) 49.4 (60.0-200.0); Potassium 4.1 mmol/L (3.5-5.5)
--- NOTE | 2022-07-29 10:24 | P.PN ---
Subjective Progress Note Date: 07/29/22 Principal diagnosis: Left hip femoral neck fracture Patient was seen at bedside this morning lying semirecumbent position. Patient says she is in a moderate amount of pain currently in the left hip. Patient says physical therapy has not yet been by to work with her this morning. Patient says she has not been up out of bed since surgery yesterday. Patient says there is some radiation pain down the left leg. Patient denies any other areas pain. Patient says she has not had a bowel movement since surgery. Patient says she has used incentive spirometer once. Patient denies chest pain, fever, shortness breath, nausea, vomiting, change in vision, loss of bowel/bladder control. Objective - Vital Signs Vital signs: Vital Signs Temp 98.1 F 07/29/22 07:15 Pulse 75 07/29/22 07:15 Resp 16 07/29/22 07:15 BP 109/68 07/29/22 07:15 Pulse Ox 97 07/29/22 08:49 FiO2 21 07/29/22 08:49 Intake & Output 07/28/22 07/29/22 07/29/22 18:59 06:59 18:59 Intake Total 1450 Output Total 440 350 Balance 1010 -350 Intake: IV 850 Intake, IV Titration 600 Amount Sodium Chloride 0.9% 1, 600 000 ml @ 130 mls/hr IV . Q7H42M STA Rx#:[id number] Output: Urine 400 350 Estimated Blood Loss 40 Other: Voiding Method Indwelling Catheter Indwelling Catheter - Exam Inspection: optifoam dressing present over the anterior left hip. There is m moderate to significant bruising along the lateral aspect of the left hip. Negative for any open fractures, significant ecchymosis/erythema/ulcers. Sensation: Sensation is equal, symmetric, bilaterally intact throughout the upper and lower extremities. Palpation: Significant tenderness of sensation diffusely throughout the left hip. Nontender to palpation throughout rest exam Range of motion: Patient has full range of motion in bilateral upper extremities and right lower extremity on exam. Patient does have limited range of motion left lower extremity secondary to left hip pain. Patient does have full range of motion left ankle in dorsi/plantar flexion. Motor: 4/5 in all major motor groups in bilateral upper extremities and right lower extremity on exam right lower extremity 4-/5 in resisted left ankle dorsi/plantar flexion. 4-/5 in resisted left knee and left hip flexion/extension. Neurovascular status: Radial pulses intact, 2+. DVT pulses palpable bilaterally. Cap refill under 3 seconds in digits upper extremities. Special tests: Negative Homans bilaterally. - Labs CBC & Chem 7: 07/28/22 06:39 07/29/22 06:13 Labs: Abnormal Lab Results - Last 24 Hours (Table) 07/29/22 Range/Units 06:13 BUN 32.1 H (9.0-27.0) mg/dL Est GFR (CKD-EPI)AfAm 57.3 L (60.0-200.0) Est GFR (CKD-EPI)NonAf 49.4 L (60.0-200.0) BUN/Creatinine Ratio 29.18 H (12.00-20.00) Ratio Glucose 129 H (70-110) mg/dL Assessment and Plan Assessment: 1. Left hip femoral neck fracture - Postoperative day #1 status post direct anterior left total hip arthroplasty Plan: 1. Left hip femoral neck fracture - patient stable at bedside this morning lying semirecumbent position. Left total hip arthroplasty direct anterior approach was performed yesterday, , 07/28/2022. Patient is to work with physical therapy daily weightbearing as tolerated with walker. Pain medication as needed. Encourage incentive spirometer. Plan for discharge to rehab within the next couple days. We will continue to follow patient during her stay in hospital 2. Appreciate medical management 3. Pain management - Tylenol; tramadol; Dilaudid; norco 4. DVT prophylaxis - Lovenox 5. GI prophylaxis - senna 6. PT/OT - weightbearing as tolerated with walker and assistance 7. Encourage incentive spirometer use 8. Discharge planning - plan for discharge to rehab within the next couple days Time with Patient: Less than 30
[2022-07-29 10:32] LABS: Basophils # (A) 0.01 X 10*3/uL (0.00-0.10); Basophils % (A) 0.1 %; Eosinophils # (A) 0 X 10*3/uL (0.04-0.35); Eosinophils % (A) 0 %; HCT 32.6 % (37.2-46.3); HGB 10.6 g/dL (12.0-15.0); Immature Grans, Automated 0.4 %; Lymphocytes % (A) 9.4 %; MCH 30.7 pg (27.0-32.0); MCHC 32.5 g/dL (32.0-37.0); MCV 94.5 fL (80.0-97.0); Mean Platelet Volume 11.1 fL (9.5-12.2); Monocytes # (A) 0.81 X 10*3/uL (0.20-1.00); Monocytes % (A) 10.9 %; NRBC Per 100 WBC 0 /100 WBCS (0.0-0.0); Neutrophils # (A) 5.88 X 10*3/uL (1.80-7.70); Neutrophils % (A) 79.2 %; Platelet Count 255 X 10*3/uL (140-440); RBC 3.45 X 10*6/uL (4.10-5.20); RDW 14.6 % (11.5-14.5); WBC 7.43 X 10*3/uL (4.50-10.00)
--- NOTE | 2022-07-29 12:04 | P.PN ---
Subjective Progress Note Date: 07/29/22 Subjective: Patient seen and examined at bedside. No acute events overnight. Pain has mostly subsided. Denies any chest pain, shortness of breath, abdominal pain, nausea, vomiting, diarrhea, constipation, urinary complaints. Pertinent positives and negatives as discussed above, a complete review of systems was performed and all other systems are negative. Vitals Signs Reviewed. General: nontoxic, no distress, appears at stated age Derm: warm, dry, dressing clean, dry, intact Head: atraumatic, normocephalic, symmetric Eyes: EOMI, no lid lag, anicteric sclera, pupils equal round reactive to light ENT: Nose and ears atraumatic Neck: No thyromegaly, supple Mouth: no lip lesion, mucus membranes moist Cardiovascular: S1S2 reg, no murmur, no edema Lungs: clear to auscultation bilateral, no rhonchi, no rales, no wheeze, no accessory muscle use Abdominal: soft, nontender to palpation, no guarding, no appreciable organomegaly Ext: no gross muscle atrophy Neuro: CN II-XII grossly intact Psych: Alert, oriented, appropriate affect Data reviewed today: Laboratory data: WBC 7.43, hemoglobin 10.6, sodium 137, creatinine 1.1, magnesium 1.8 Assessment and Plan: Active: Mild rhabdomyolysis Hyperbilirubinemia History of hypertension Mild dehydration Mechanical fall Acute impacted left femoral neck fracture, status post left total hip arthroplasty -Renal function remains stable, only getting 50 mL an hour normal saline, encourage oral intake -CK levels previously down trending -Hydrochlorothiazide being held, continue lisinopril and metoprolol -Pain control with IV dilaudid PRN and oral norco PRN and oral tylenol PRN, tramadol PRN -Orthopedics following -PT/OT -Lovenox for DVT prophylaxis Resolved: Elevated AST and ALP Chronic: Dyslipidemia Thank you for allowing us to participate in the care of this pleasant patient. Do not hesitate to contact us with questions. Someone can be reached from the [facility] [facility] hospitalist group all hours of the day at [phone] or via perfect serve. Objective - Vital Signs Vital signs: Vital Signs Temp 98.1 F 07/29/22 07:15 Pulse 75 07/29/22 07:15 Resp 16 07/29/22 07:15 BP 109/68 07/29/22 07:15 Pulse Ox 97 07/29/22 08:49 FiO2 21 07/29/22 08:49 Intake & Output 07/28/22 07/29/22 07/29/22 18:59 06:59 18:59 Intake Total 1450 Output Total 440 350 Balance 1010 -350 Intake: IV 850 Intake, IV Titration 600 Amount Sodium Chloride 0.9% 1, 600 000 ml @ 130 mls/hr IV . Q7H42M STA Rx#:[id number] Output: Urine 400 350 Estimated Blood Loss 40 Other: Voiding Method Indwelling Catheter Indwelling Catheter - Labs CBC & Chem 7: 07/29/22 06:13 07/29/22 06:13 Labs: Abnormal Lab Results - Last 24 Hours (Table) 07/29/22 07/29/22 Range/Units 06:13 06:13 RBC 3.45 L (4.10-5.20) X 10*6/uL Hgb 10.6 L (12.0-15.0) g/dL Hct 32.6 L (37.2-46.3) % RDW 14.6 H (11.5-14.5) % Lymphocytes # 0.70 L (0.90-5.00) X 10*3/uL Eosinophils # 0 L (0.04-0.35) X 10*3/uL BUN 32.1 H (9.0-27.0) mg/dL Est GFR (CKD-EPI)AfAm 57.3 L (60.0-200.0) Est GFR (CKD-EPI)NonAf 49.4 L (60.0-200.0) BUN/Creatinine Ratio 29.18 H (12.00-20.00) Ratio Glucose 129 H (70-110) mg/dL
--- NOTE | 2022-07-29 14:46 | CDI ---
Documentation Clarification Form Date: 07/29/2022 2:25:40 PM From: Bianka House RN, CCDS Email: [email or web address] Admit Date: 07/27/2022 9:38:00 AM Patient Name: Lelo Izquierdo Visit Number: [id number] Discharge Date: ATTENTION: The Clinical Documentation Specialists (CDI) and [facility] Coding Staff appreciate your assistance in clarifying documentation. Please respond to the clarification below the line at the bottom and electronically sign. The CDI & [facility] Coding staff will review the response and follow-up if needed. Please note: Queries are made part of the Legal Health Record. If you have any questions, please contact the author of this message via ITS. Dr. Andrew Garcia Rhabdomyolysis is documented in the H&P and progress notes. Additional clarification regarding the type of rhabdomyolysis is requested. History/Risk Factors: chronic cervical pain, chronic debility, ambulates with a walker at baseline. History of multiple falls. Clinical Indicators: ED note: presents to the ED complaining of a fall. Patient states she fell sometime yesterday and no one was able to find her until today. She has been down for approximately 21 hours. Impression: fall, dehydration, fracture left femoral neck, elevated creatine kinase." H&P: "Mild rhabdomyolysis. Mechanical fall." 07/28 IM: "CK levels down trending. Hyperbilirubinemia, elevated AST and ALP in the setting of rhabdomyolysis and acute fracture, down trending." 07/27 CK: 919 07/28 CK: 250 Treatment: 0.9 NS IV bolus x2 on 07/27 then 130ml/hr then 50ml/hr. Monitor CK levels. IV Dilaudid for pain Please clarify the type of rhabdomyolysis, if known: [ x ] Traumatic rhabdomyolysis due to fall [ ] Traumatic rhabdomyolysis due to prolonged immobility [ ] Other, please specify [ ] Unable to Determine MTDD
[2022-07-29] MEDS: SODIUM CHLORIDE 0.9% 1,000 ML IV SCH (16:50)
[2022-07-29] MEDS ORDERED: HYDROcodone/APAP 7.5-325MG 1 EACH TAB PO PRN (18:05)
[2022-07-29] MEDS ORDERED: MAGNESIUM HYDROXIDE 2,400 MG/10 ML CUP PO PRN (18:06)
[2022-07-29] MEDS: SENNOSIDES-DOCUSATE SODIUM 1 EACH TAB PO SCH (20:49)
[2022-07-30] MEDS: HYDROcodone/APAP 5-325MG 1 EACH TAB PO PRN ×2 (06:22→16:19)
[2022-07-30] MEDS: ENOXAPARIN 40 MG/0.4 ML SYRINGE SQ SCH (07:39)
[2022-07-30] MEDS: lisinopriL 20 MG TAB PO SCH (07:39)
[2022-07-30] MEDS: METOPROLOL SUCCINATE (ER) 50 MG TAB.ER.24H PO SCH (07:39)
[2022-07-30] MEDS: ATORVASTATIN 10 MG TAB PO SCH (07:39)
--- NOTE | 2022-07-30 09:34 | P.PN ---
Subjective Progress Note Date: 07/30/22 Principal diagnosis: Status post right anterior left total hip arthroplasty Patient was examined today at bedside, she is resting in her hospital bed. She still getting a little bit. She denies any headaches, lightheadedness, chest pain or shortness of breath. Objective - Vital Signs Vital signs: Vital Signs Temp 98.1 F 07/30/22 07:23 Pulse 79 07/30/22 08:00 Resp 16 07/30/22 08:00 BP 120/70 07/30/22 07:23 Pulse Ox 94 L 07/30/22 08:17 FiO2 21 07/29/22 08:49 Intake & Output 07/29/22 07/30/22 07/30/22 18:59 06:59 18:59 Output Total 500 Balance -500 Output: Urine 500 Uretheral (Chand) 200 Other: Voiding Method Indwelling Catheter Indwelling Catheter # Voids 1 # Bowel Movements 0 - Exam Left lower extremity: Incision is clean, dry, and intact. The postoperative dressing is in good co ndition. There is minimal soft tissue swelling and ecchymosis surrounding the medial and lateral aspects of the incision. Calf is soft, no tenderness with palpation. Plantar flexion, dorsiflexion, EHL, FHL are intact. Sensory exam to light touch throughout the extremity is intact, dorsal pedis pulses 2+. - Labs CBC & Chem 7: 07/29/22 06:13 07/29/22 06:13 Labs: Abnormal Lab Results - Last 24 Hours (Table) 07/29/22 Range/Units 06:13 RBC 3.45 L (4.10-5.20) X 10*6/uL Hgb 10.6 L (12.0-15.0) g/dL Hct 32.6 L (37.2-46.3) % RDW 14.6 H (11.5-14.5) % Lymphocytes # 0.70 L (0.90-5.00) X 10*3/uL Eosinophils # 0 L (0.04-0.35) X 10*3/uL Assessment and Plan Assessment: Postoperative day #2 status post left direct anterior total hip arthroplasty Status post fall resulting in displaced left femoral neck fracture Plan: Pain control, continue with current medications DVT prophylaxis, continue with current medications Continue to monitor dressing, okay to leave in place for the next 5 days Weight-bear as tolerated, continue use of walker Encourage incentive spirometer Medical recommendations Discharge planning: Patient stable via the orthopedic standpoint for discharge to subacute rehab, we are waiting on authorization Time with Patient: Less than 30
[2022-07-30 09:47] LABS: Anion Gap 11.6 mmol/L (10.00-18.00); BUN/Creat Ratio 29.11 Ratio (12.00-20.00); Blood Urea Nitrogen 26.2 mg/dL (9.0-27.0); Calcium 8.7 mg/dL (8.7-10.3); Carbon Dioxide 22.4 mmol/L (20.0-27.5); Potassium 3.8 mmol/L (3.5-5.5)
--- NOTE | 2022-07-30 13:07 | P.PN ---
Subjective Progress Note Date: 07/30/22 Patient is a 77-year-old female with hypertension and dyslipidemia who presented with a impacted left femoral neck fracture after mechanical fall. Patient on her wind dropped anterior left total hip arthroplasty on 07/28/22. Patient seen and examined at bedside. Her pain is currently well tolerated. She denies any chest pain, shortness of breath, nausea, vomiting, or constipation. Vital signs reviewed General: nontoxic, no distress, appears at stated age Cardiovascular: S1S2 reg, no murmur, positive posterior tibial pulse bilateral, Lungs: CTA bilateral, no rhonchi, no rales , no accessory muscle use Abdominal: soft, nontender to palpation, no guarding, no appreciable orga nomegaly Ext: no gross muscle atrophy, no edema, no contractures Neuro: CN II-XI grossly intact, no focal neuro deficits Psych: Alert, oriented, appropriate affect Assessment: 76-year-old female status post left total hip arthroplasty secondary to left fem oral fracture. Acute blood loss anemia. Hypertension Dyslipidemia Resolved: Mild rhabdo Hyperbilirubinemia Mild dehydration Imaging: No new imaging Data Review: Labs reviewed from today. BmP is unremarkable. Hemoglobin has fallen from 15- 10.6 (on 07/29/22) given IV fluids and operative procedure. We'll repeat CBC in a.m. Plan: -No current indication for transfusion. We will check iron studies. Start patient on ferrous sulfate 325 mg daily. -Blood pressures reviewed and are within acceptable range. We'll continue with metoprolol 50 mg daily, continue with lisinopril 20 mg daily. Continue to hold patient's hydrochlorothiazide 25 mg daily with recent rhabdo. Continue to monitor blood pressures. -Stop IV fluids and encourage oral fluid intake -Continue with Lipitor 10 mg daily -Plan is for discharge to rehab once authorization is obtained Thank you for allowing us to participate in the care of this pleasant patient. Do not hesitate to contact us with questions. Someone can be reached from the [facility] hospitalist group all hours of the day at [phone] or via perfect serve. DVT prophylaxis: Lovenox This dictation was prepared using [employer] voice recognition software. Though every attempt is made to correct errors during during dictation some may still exist. Objective - Vital Signs Vital signs: Vital Signs Temp 98.1 F 07/30/22 07:23 Pulse 79 07/30/22 08:00 Resp 16 07/30/22 08:00 BP 120/70 07/30/22 07:23 Pulse Ox 94 L 07/30/22 08:17 FiO2 21 07/29/22 08:49 Intake & Output 07/29/22 07/30/22 07/30/22 18:59 06:59 18:59 Output Total 500 Balance -500 Output: Urine 500 Uretheral (Chand) 200 Other: Voiding Method Indwelling Catheter Indwelling Catheter # Voids 1 1 # Bowel Movements 0 - Labs CBC & Chem 7: 07/29/22 06:13 07/30/22 05:37 Labs: Abnormal Lab Results - Last 24 Hours (Table) 07/30/22 Range/Units 05:37 BUN/Creatinine Ratio 29.11 H (12.00-20.00) Ratio
[2022-07-30] MEDS: FERROUS SULFATE 325 MG TAB PO SCH (15:33)
[2022-07-30] MEDS: SENNOSIDES-DOCUSATE SODIUM 1 EACH TAB PO SCH (19:56)
[2022-07-30] MEDS: SODIUM CHLORIDE 0.9% 1,000 ML IV SCH (21:40)
[2022-07-31] MEDS: ATORVASTATIN 10 MG TAB PO SCH (07:36)
[2022-07-31] MEDS: METOPROLOL SUCCINATE (ER) 50 MG TAB.ER.24H PO SCH (07:36)
[2022-07-31] MEDS: HYDROcodone/APAP 5-325MG 1 EACH TAB PO PRN ×2 (07:36→21:14)
[2022-07-31] MEDS: ENOXAPARIN 40 MG/0.4 ML SYRINGE SQ SCH (07:36)
[2022-07-31] MEDS: lisinopriL 20 MG TAB PO SCH (07:36)
--- NOTE | 2022-07-31 09:38 | P.PN ---
Subjective Progress Note Date: 07/31/22 Patient is a 77-year-old female with hypertension and dyslipidemia who presented with a impacted left femoral neck fracture after mechanical fall. Patient on her wind dropped anterior left total hip arthroplasty on 07/28/22. Patient seen and examined at bedside. She complains of nausea and not feeling hungry, she denies pain, no chest pain, no shortness of breath. Vital signs reviewed General: nontoxic, no distress, appears at stated age Cardiovascular: S1S2 reg, no murmur, positive posterior tibial pulse bilateral, Lungs: Decreased bs bilateral, no rhonchi, no rales , no accessory muscle use Abdominal: soft, nontender to palpation, no guarding, no appreciable organomegaly Ext: no gross muscle atrophy, no edema, no contractures Neuro: CN II-XI grossly intact, no focal neuro deficits Psych: Alert, oriented, appropriate affect Assessment: 76-year-old female status post left total hip arthroplasty secondary to left femoral fracture. Acute blood loss anemia, with component of iron deficiency anemia Hypertension Dyslipidemia Resolved: Mild rhabdo Hyperbilirubinemia Mild dehydration Imaging: Data Review: T max is 99.9 in 24 hours Hemoglobin 10.8, stable from 10.6 on 07/29, BUN 17, creatinine 0.8, T sat 8.48, iron 17, TIBC 195, ferritin 387. Plan: -No current indication for transfusion. Continue ferrous sulfate 325 mg daily. -Blood pressures reviewed and are continue to be within acceptable range. Continue with metoprolol 50 mg daily, continue with lisinopril 20 mg daily. Continue to hold patient's hydrochlorothiazide 25 mg daily with recent rhabdo. -Continue with Lipitor 10 mg daily -Plan is for discharge to rehab once authorization is obtained Thank you for allowing us to participate in the care of this pleasant patient. Do not hesitate to contact us with questions. Someone can be reached from the [facility] hospitalist group all hours of the day at [phone] or via perfect serve. DVT prophylaxis: Lovenox This dictation was prepared using [employer] voice recognition software. Though every attempt is made to correct errors during during dictation some may still exist. Objective - Vital Signs Vital signs: Vital Signs Temp 99.6 F 07/31/22 07:23 Pulse 80 07/31/22 07:37 Resp 15 03/19/23 07:37 BP 149/75 07/31/22 07:23 Pulse Ox 95 07/31/22 08:04 FiO2 21 07/29/22 08:49 Intake & Output 07/30/22 07/31/22 07/31/22 18:59 06:59 18:59 Output Total 150 Balance -150 Output: Urine 150 Other: Voiding Method Bedpan Bedpan # Voids 3 4 # Bowel Movements 1 1 - Labs CBC & Chem 7: 07/31/22 05:21 07/31/22 05:21 Labs: Abnormal Lab Results - Last 24 Hours (Table) 07/30/22 Range/Units 05:37 BUN/Creatinine Ratio 29.11 H (12.00-20.00) Ratio
[2022-07-31 09:48] LABS: Basophils # (A) 0.06 X 10*3/uL (0.00-0.10); Basophils % (A) 0.8 %; Eosinophils # (A) 0.07 X 10*3/uL (0.04-0.35); Eosinophils % (A) 0.9 %; HCT 31.9 % (37.2-46.3); HGB 10.8 g/dL (12.0-15.0); Immature Grans, Automated 0.4 %; Lymphocytes # (A) 1.41 X 10*3/uL (0.90-5.00); Lymphocytes % (A) 17.6 %; MCHC 33.9 g/dL (32.0-37.0); MCV 91.7 fL (80.0-97.0); Mean Platelet Volume 10.9 fL (9.5-12.2); Monocytes # (A) 0.85 X 10*3/uL (0.20-1.00); Monocytes % (A) 10.6 %; NRBC Per 100 WBC 0 /100 WBCS (0.0-0.0); Neutrophils # (A) 5.57 X 10*3/uL (1.80-7.70); Neutrophils % (A) 69.7 %; Platelet Count 321 X 10*3/uL (140-440); RBC 3.48 X 10*6/uL (4.10-5.20); RDW 14.6 % (11.5-14.5); WBC 7.99 X 10*3/uL (4.50-10.00)
[2022-07-31 09:54] LABS: % Iron Saturation 8.48 (12.00-45.00); African American GFR (CKD) 82.9 (60.0-200.0); Anion Gap 9.6 mmol/L (10.00-18.00); BUN/Creat Ratio 21.98 Ratio (12.00-20.00); Blood Urea Nitrogen 17.8 mg/dL (9.0-27.0); Calcium 8.5 mg/dL (8.7-10.3); Carbon Dioxide 25.5 mmol/L (20.0-27.5); Non-African American GFR(CKD) 71.5 (60.0-200.0); Potassium 3.6 mmol/L (3.5-5.5)
--- NOTE | 2022-07-31 12:23 | P.PN ---
Subjective Progress Note Date: 07/31/22 Principal diagnosis: Status post right anterior left total hip arthroplasty Patient is examined today at bedside, she is resting comfortably in her hospital bed. Patient notes that since this morning she's been very nauseated. She seems very diaphoretic today on exam. Minimal discomfort in the left lower extremity at this time. She has been up and ambulating with therapy and sitting. She currently denies any chest pain or shortness of breath. Objective - Vital Signs Vital signs: Vital Signs Temp 99.6 F 07/31/22 07:23 Pulse 80 07/31/22 07:37 Resp 15 07/31/22 07:37 BP 149/75 07/31/22 07:23 Pulse Ox 95 07/31/22 08:04 FiO2 21 07/29/22 08:49 Intake & Output 07/30/22 07/31/22 07/31/22 18:59 06:59 18:59 Output Total 150 Balance -150 Output: Urine 150 Other: Voiding Method Bedpan Bedpan # Voids 3 4 # Bowel Movements 1 1 - Exam Left lower extremity: Incision is clean, dry, and intact. The postoperative dressing is in good condition. There is minimal soft tissue swelling and ecchymosis surrounding the medial and lateral aspects of the incision. Calf is soft, no tenderness with palpation. Plantar flexion, dorsiflexion, EHL, FHL are intact. Sensory exam to light touch throughout the extremity is intact, dorsal pedis pulses 2+. - Labs CBC & Chem 7: 07/31/22 05:21 07/31/22 05:21 Labs: Abnormal Lab Results - Last 24 Hours (Table) 07/31/22 07/31/22 Range/Units 05:21 05:21 RBC 3.48 L (4.10-5.20) X 10*6/uL Hgb 10.8 L (12.0-15.0) g/dL Hct 31.9 L (37.2-46.3) % RDW 14.6 H (11.5-14.5) % Anion Gap 9.60 L (10.00-18.00) mmol/L BUN/Creatinine Ratio 21.98 H (12.00-20.00) Ratio Glucose 120 H (70-110) mg/dL Calcium 8.5 L (8.7-10.3) mg/dL Iron 17 L (50-170) ug/dL TIBC 195 L (228-460) ug/dL % Saturation 8.48 L (12.00-45.00) Transferrin 139.0 L (204.0-354.0) mg/dL Ferritin 387.0 H (10.0-291.0) ng/mL Assessment and Plan Assessment: Postoperative day #3 status post left direct anterior total hip arthroplasty Status post fall resulting in displaced left femoral neck fracture Plan: Pain control, continue with current medications DVT prophylaxis, continue with current medications Continue to monitor dressing, okay to leave in place for the next 5 days Weight-bear as tolerated, continue use of walker Encourage incentive spirometer Medical recommendations Discussed with nursing to restart IV fluids at this time. We will try to hold off on Help nausea, contact internal medicine to update current condition Discharge planning: Patient stable via the orthopedic standpoint for discharge to subacute rehab, we are waiting on authorization Time with Patient: Less than 30
[2022-07-31] MEDS: ACETAMINOPHEN TAB 325 MG TAB PO PRN (13:33)
[2022-07-31] MEDS: FERROUS SULFATE 325 MG TAB PO SCH (13:33)
[2022-07-31] MEDS: SENNOSIDES-DOCUSATE SODIUM 1 EACH TAB PO SCH (20:05)
[2022-08-01] MEDS: ACETAMINOPHEN TAB 325 MG TAB PO PRN ×2 (02:36→13:02)
[2022-08-01 07:58] VITALS: PULSE 69; RESP 16
[2022-08-01] MEDS: ATORVASTATIN 10 MG TAB PO SCH (08:59)
[2022-08-01] MEDS: lisinopriL 20 MG TAB PO SCH (08:59)
[2022-08-01] MEDS: METOPROLOL SUCCINATE (ER) 50 MG TAB.ER.24H PO SCH (08:59)
[2022-08-01] MEDS: ENOXAPARIN 40 MG/0.4 ML SYRINGE SQ SCH (08:59)
[2022-08-01] MEDS: FERROUS SULFATE 325 MG TAB PO SCH (12:07)
--- NOTE | 2022-08-01 12:29 | P.PN ---
Subjective Progress Note Date: 08/01/22 Principal diagnosis: Status post right anterior left total hip arthroplasty Patient is examined today at bedside, she is resting comfortably in her hospital bed. Patient is feeling a lot better today. Patient was able to get up with minimal assistance bedside commode. She denies headaches, lightheadedness or chest pain or shortness of breath. Objective - Vital Signs Vital signs: Vital Signs Temp 98.4 F 08/01/22 06:58 Pulse 69 08/01/22 06:58 Resp 16 08/01/22 06:58 BP 126/78 08/01/22 06:58 Pulse Ox 99 08/01/22 08:33 FiO2 21 07/29/22 08:49 Intake & Output 07/31/22 08/01/22 08/01/22 18:59 06:59 18:59 Output Total 300 Balance -300 Output: Urine 300 Other: Voiding Method Bedpan Bedpan Bedpan External Catheter Diaper # Voids 3 1 - Exam Left lower extremity: Incision is clean, dry, and intact. The postoperative dressing is in good condition. There is minimal soft tissue swelling and ecchymosis surrounding the medial and lateral aspects of the incision. Calf is soft, no tenderness with palpation. Plantar flexion, dorsiflexion, EHL, FHL are intact. Sensory exam to light touch throughout the extremity is intact, dorsal pedis pulses 2+. - Labs CBC & Chem 7: 07/31/22 05:21 07/31/22 05:21 Assessment and Plan Assessment: Postoperative day #4 status post left direct anterior total hip arthroplasty Status post fall resulting in displaced left femoral neck fracture Plan: Pain control, continue with current medications DVT prophylaxis, aspirin 81 mg twice a day for 30 Continue to monitor dressing, okay to leave in place for the next 5 days Weight-bear as tolerated, continue use of walker Encourage incentive spirometer Medical recommendations Discharge planning: Planning for discharge to rehab today Time with Patient: Less than 30
--- NOTE | 2022-08-01 12:31 | P.PN ---
Subjective Progress Note Date: 08/01/22 Patient is a 77-year-old female with hypertension and dyslipidemia who presented with a impacted left femoral neck fracture after mechanical fall. Patient underwent direct anterior left total hip arthroplasty on 07/28/22. Patient seen and examined at bedside. She has no complaints today, she is working with therapy. She denies pain at this time and is motivated to go to rehab. Vital signs reviewed General: nontoxic, no distress, appears at stated age Cardiovascular: S1S2 reg, no murmur, positive posterior tibial pulse bilateral, Lungs: Decreased bs bilateral, no rhonchi, no rales , no accessory muscle use Abdominal: soft, nontender to palpation, no guarding, no appreciable o rganomegaly Ext: no gross muscle atrophy, no edema, no contractures Neuro: CN II-XI grossly intact, no focal neuro deficits Psych: Alert, oriented, appropriate affect Assessment: 76-year-old female status post left total hip arthroplasty secondary to left femoral fracture. Acute blood loss anemia, with component of iron deficiency anemia Hypertension Dyslipidemia Resolved: Mild rhabdo Hyperbilirubinemia Mild dehydration Imaging: Data Review: T max is 99.9 in 24 hours Hemoglobin 10.8, stable from 10.6 on 07/29, BUN 17, creatinine 0.8, T sat 8.48, iron 17, TIBC 195, ferritin 387. Plan: -No current indication for transfusion. -Blood pressures reviewed and are continue to be within acceptable range. -Continue with Lipitor 10 mg daily -Discharge med rec addressed will resume lisinopril/hctz, Ferrous sulfate X 30 day. 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 - follow-up with Dr. Medeiros upon discharge from rehab, medically optimized for discharge to rehab. Thank you for allowing us to participate in the care of this pleasant patient. Do not hesitate to contact us with questions. Someone can be reached from the [facility] hospitalist group all hours of the day at [phone] or via perfect serve. DVT prophylaxis: Lovenox This dictation was prepared using [employer] voice recognition software. Though every attempt is made to correct errors during during dictation some may still exist. Objective - Vital Signs Vital signs: Vital Signs Temp 98.4 F 08/01/22 06:58 Pulse 69 08/01/22 06:58 Resp 16 08/01/22 06:58 BP 126/78 08/01/22 06:58 Pulse Ox 99 08/01/22 08:33 FiO2 21 07/29/22 08:49 Intake & Output 07/31/22 08/01/22 08/01/22 18:59 06:59 18:59 Output Total 300 Balance -300 Output: Urine 300 Other: Voiding Method Bedpan Bedpan Bedpan External Catheter Diaper # Voids 3 1 - Labs CBC & Chem 7: 07/31/22 05:21 07/31/22 05:21
--- NOTE | 2022-08-01 12:40 | P.DS ---
Providers Date of admission: 07/27/22 09:38 Expected date of discharge: 08/01/22 Attending physician: Alec Myers Consults: 07/27/22 10:20 Consult Physician Routine Consulting Provider: Janay Packer Consult Reason/Comments: medical management Do you want consulting provider notified?: Already Contacted Primary care physician: [facility] Course: Date of admission: 07/27/2022 Date of discharge: 08/01/2022 Admission diagnosis: Displaced left femoral neck fracture Discharge diagnosis: Status post direct anterior left total hip arthroplasty Attending physician: Dr. Myers Surgical procedures: Direct anterior left total hip arthroplasty Brief history: Patient is a 76-year-old female who presented to [facility] on 07/27/2022 after sustaining a fall and injuring her left lower extremity. Patient was down on the ground for about a day and a half prior to being found. EMS did bring patient hospital, upon arrival was determined she had a displaced left femoral neck fracture. Patient was admitted under our orthopedic care plan for surgical intervention. Hospital course: Details of patient's surgery can be found in operative report. Patient tolerated the procedure well and was subsequently transported to orthopedic floor. Patient's orthopeidc and medical care was provided daily. Patient had daily laboratory tests performed for evaluation of overall blood counts. Patient had daily physical therapy to include strengthening range of motion as well as education with walker ambulation. Patient was treated with Lo venox for their postoperative DVT prophylaxis during their inpatient stay. Patient was noted to have a relatively uneventful postoperative course. Patient reported satisfactory pain control with oral pain medications by postoperative day 0. Patient showed satisfactory progress with physical therapy. Patient moved steadily through the program and had no difficulty meeting the goals by postoperative day 4. Given patient's otherwise satisfactory course and having met physical therapy goals, plan is to discharge patient subacute rehab on postoperative day 4. Discharge condition/disposition: Patient will be discharged in subacute rehab stable condition. Discharge medications: Instructions are given on resumption of patient's normal daily medications per primary care recommendation, in addition patient will be prescribed [place] 5 mg/325 mg, aspirin milligrams, Senokot-S, ferrous sulfate 325 mg Discharge instructions: 1. Wound care and infection precautions, keep incision dry and covered while showering, no lotions, creams, moisturizers. No soaking, tubs, pools, hottubs. Do not scrub over the incision. 2. Weight-bear as tolerated with walker / cane until follow-up. 3. Ice and elevate when necessary. Do not exceed 20 minutes per hour with ice pack. 4. Utilize compression sleeve until seen at first follow up appointment. 5. Visiting nursing care. 6. Home physical therapy 7. Pain meds and anticoagulants per prescription. 8. Pain medication has potential to cause constipation. Increase oral fluid and fiber intake. Contact primary care provider if you have not had a bowel movement within 48 hours after discharge 9. No anti-inflammatory medication until discussed at first post operative visit, this including Motrin, Aleve, Mobic, Diclofenac 10. Follow up in office at 2 weeks postop with Ganga Galindo PA-C/Sergey Beckham 11. Follow up with your primary care doctor 7-10 days after discharge. 12. Contact [facility] with any questions, . Procedures: Direct anterior left total hip arthroplasty Patient Condition at Discharge: Stable Plan - Discharge Summary Discharge Rx Participant: No New Discharge Prescriptions: New Ferrous Sulfate [Iron (65 MG Elemental)] 325 mg PO W/LUNCH 30 Days tab Aspirin [Adult Low Dose Aspirin EC] 81 mg PO BID #60 tab HYDROcodone/APAP 5-325MG [[place] 5-325] 1 tab PO Q6HR PRN #18 tab PRN Reason: Pain Sennosides/Docusate Sodium [Senna-S 8.6-50 mg Tablet] 2 each PO DAILY PRN #30 tablet PRN Reason: Constipation Continue Atorvastatin [Lipitor] 10 mg PO DAILY Metoprolol Succinate (ER) [Toprol XL] 50 mg PO DAILY Lisinopril-Hctz 20-25 mg [Zestoretic 20-25] 1 tab PO HS Discharge Medication List Atorvastatin [Lipitor] 10 mg PO DAILY 07/27/22 [History] Lisinopril-Hctz 20-25 mg [Zestoretic 20-25] 1 tab PO HS 07/27/22 [History] Metoprolol Succinate (ER) [Toprol XL] 50 mg PO DAILY 07/27/22 [History] Aspirin [Adult Low Dose Aspirin EC] 81 mg PO BID #60 tab 08/01/22 [Rx] Ferrous Sulfate [Iron (65 MG Elemental)] 325 mg PO W/LUNCH 30 Days tab 08/01/22 [Rx] HYDROcodone/APAP 5-325MG [[place] 5-325] 1 tab PO Q6HR PRN #18 tab 08/01/22 [Rx] Sennosides/Docusate Sodium [Senna-S 8.6-50 mg Tablet] 2 each PO DAILY PRN #30 tablet 08/01/22 [Rx] Follow up Appointment(s)/Referral(s): Alok Galindo PAC [PHYSICIAN BATCH ATTENDANT] - 2 Weeks Adolfo Lyon DO [Primary Care Provider] - 1 Week Activity/Diet/Wound Care/Special Instructions: Orthopedic Discharge Instructions: 1. Wound care and infection precautions, keep incision dry and covered while showering, no lotions, creams, moisturizers. No soaking, pools, hot tubs. Do not scrub over incision. 2. Weight-bear as tolerated with walker / cane until follow-up. 3. Ice and elevate when necessary. Do not exceed 20 minutes per hour with ice pack. 4. Utilize compression sleeve until seen at first follow up appointment. 5. Pain meds and anticoagulants per prescription. 6. Pain medication has potential to cause constipation. Increase oral fluid and fiber intake. Contact primary care provider if you have not had a bowel movement within 48 hours after discharge. 7. No anti-inflammatory medication until discussed at first post operative visit, this including Motrin, Aleve, Mobic, Diclofenac, Aspirin. 8. Follow up in office at 2 weeks postop with Ganga Galindo PA-C/Sergey Jose PA-C 9. Follow up with your primary care doctor 7-10 days after discharge. 10. Contact [facility] with any questions, . Wound care instructions: 1 Okay to remove foam dressing is a 08/04/2022 2. After removal of dressing, okay to shower directly over incision Discharge Disposition: HOME WITH HOME HEALTH SERVICES
[2022-08-01 14:17] VITALS: BP 117/69; TEMP 98.5
== END 2022-08-01 14:52 | disposition home health service (06) | DRG 956 ==
LOC: EC 07:31 → 4SSUR 09:38
PROVIDERS: ADMIT Orthopaedic Surgery; ATTEND Orthopaedic Surgery
PROC: 0SRB04A Replacement of Left Hip Joint with Ceramic on Polyethylene Synthetic Substitute, Uncemented, Open Approach (ICD-10-PCS; principal; 2022-07-28 15:35)
DX: S72.002A Fracture of unspecified part of neck of left femur, initial encounter for closed fracture (principal); T79.6XXA Traumatic ischemia of muscle, initial encounter; D62 Acute posthemorrhagic anemia; R17 Unspecified jaundice; W01.0XXA Fall on same level from slipping, tripping and stumbling without subsequent striking against object, initial encounter; Y92.029 Unspecified place in mobile home as the place of occurrence of the external cause; R29.6 Repeated falls; E80.6 Other disorders of bilirubin metabolism; I10 Essential (primary) hypertension; M53.3 Sacrococcygeal disorders, not elsewhere classified; R74.01 Elevation of levels of liver transaminase levels; M17.12 Unilateral primary osteoarthritis, left knee; E86.0 Dehydration; E78.5 Hyperlipidemia, unspecified; D50.9 Iron deficiency anemia, unspecified; S80.212A Abrasion, left knee, initial encounter; R53.81 Other malaise; Z79.899 Other long term (current) drug therapy; Z88.0 Allergy status to penicillin; Z87.81 Personal history of (healed) traumatic fracture; Z91.81 History of falling; Z28.310 Unvaccinated for COVID-19
CPT/HCPCS: 36415; 70450; 71045; 72125; 72131; 73501; 73502; 80048; 80053; 81001; 82550; 82728; 83540; 83550; 83735; 85025; 85610; 85730; 86850; 86900; 86901; 88305; 88311; 90471; 90715; 93005; 94760; 96361; 96372; 96374; 96375; 99285

== ENCOUNTER 2022-08-11 14:42 | Observation (INO) | payer MEDICARE ==
[2022-08-11 15:02] VITALS: RESP 16
[2022-08-11] MEDS ORDERED: HEPARIN SODIUM 1,000 UN/ML (10ML VL) IV ONE (15:32)
--- NOTE | 2022-08-11 15:32 | ED ---
General Adult HPI - General Chief complaint: Extremity Problem,Nontraumatic Stated complaint: SOB Time Seen by Provider: 08/11/22 15:00 Source: patient, RN notes reviewed, old records reviewed Mode of arrival: ambulatory Limitations: no limitations - History of Present Illness Initial comments: This is a 76-year-old female presents from the long term with a left DVT. Patient was sent in to be admitted for DVT. Patient had surgery 2 weeks ago for a fractured left hip. Patient's surgery was done by Dr. Myers. Patient denies any difficulty breathing patient denies any chest pain. Patient denies any palpitations. Patient denies any fever chills. - Related Data Home Medications Medication Instructions Recorded Confirmed Atorvastatin [Lipitor] 10 mg PO HS 07/27/22 08/11/22 Lisinopril-Hctz 20-25 mg 1 tab PO HS 07/27/22 08/11/22 [Zestoretic 20-25] Metoprolol Succinate (ER) [Toprol 50 mg PO DAILY 07/27/22 08/11/22 XL] Acetaminophen [Tylenol 8 Hour] 650 mg PO Q6H PRN 08/11/22 08/11/22 Apixaban [Eliquis] 5 mg PO BID@0700,1900 08/11/22 08/11/22 Aspirin [Adult Low Dose Aspirin EC] 81 mg PO DAILY 08/11/22 08/11/22 Ferrous Sulfate [Iron (65 MG 325 mg PO DAILY 08/11/22 08/11/22 Elemental)] Sennosides [Senokot] 17.2 mg PO DAILY 08/11/22 08/11/22 Previous Rx's Medication Instructions Recorded HYDROcodone/APAP 5-325MG [[place] 1 tab PO Q6HR PRN #18 tab 08/01/22 5-325] Allergies Allergy/AdvReac Type Severity Reaction Status Date / Time Penicillins Allergy Rash/Headac Verified 08/11/22 15:56 he Review of Systems ROS Statement: Those systems with pertinent positive or pertinent negative responses have been documented in the HPI. ROS Other: All systems not noted in ROS Statement are negative. Past Medical History Past Medical History: CVA/TIA, Hyperlipidemia, Hypertension Additional Past Medical History / Comment(s): CVA around 10 years ago no residual effects History of Any Multi-Drug Resistant Organisms: None Reported Past Surgical History: Hysterectomy, Orthopedic Surgery Additional Past Surgical History / Comment(s): right hip break w/ replacement about 10 years ago, total hysterectomy Past Anesthesia/Blood Transfusion Reactions: No Reported Reaction Past Psychological History: No Psychological Hx Reported Smoking Status: Never smoker Past Alcohol Use History: None Reported Past Drug Use History: None Reported General Exam - General Exam Comments Initial Comments: GENERAL: Patient is well-developed and well-nourished. Patient is nontoxic and well- hydrated and is in no acute distress. ENT: Neck is soft and supple. No significant lymphadenopathy is noted. Oropharynx is clear. Moist mucous membranes. Neck has full range of motion without eliciting any pain. EYES: The sclera were anicteric and conjunctiva were pink and moist. Extraocular movements were intact and pupils were equal round and reactive to light. Eyelids were unremarkable. PULMONARY: Unlabored respirations. Good breath sounds bilaterally. No audible rales rhonchi or wheezing was noted. CARDIOVASCULAR: There is a regular rate and rhythm without any murmurs gallops or rubs. ABDOMEN: Soft and nontender with normal bowel sounds. SKIN: Skin is clear with no lesions or rashes and otherwise unremarkable. NEUROLOGIC: Patient is alert and oriented x3. Cranial nerves II through XII are grossly intact. Motor and sensory are also intact. Normal speech, volume and content. Symmetrical smile. MUSCULOSKELETAL: Normal extremities with adequate strength and full range of motion. Mild swelling to the left leg LYMPHATICS: No significant lymphadenopathy is noted PSYCHIATRIC: Normal psychiatric evaluation. Limitations: no limitations Course Vital Signs 08/11/22 14:57 Temperature 98.3 F Pulse Rate 67 Respiratory 16 Rate Blood Pressure 115/55 O2 Sat by Pulse 99 Oximetry Medical Decision Making - Medical Decision Making Was pt. sent in by a medical professional or institution (, PA, CHECKER IN, urgent care, hospital, or long term...) When possible be specific @ -Patient was sent in by the long term for DVT in her left leg Did you speak to anyone other than the patient for history (EMS, parent, family, police, friend...)? What history was obtained from this source @ -No Did you review nursing and triage notes (agree or disagree)? Why? @ -I reviewed and agree with nursing and triage notes Were old charts reviewed (outside hosp., previous admission, EMS record, old EKG, old radiological studies, urgent care reports/EKG's, long term records)? Report findings @ -I reviewed the charts from the long term and the ultrasound report from the long term Differential Diagnosis (chest pain, altered mental status, abdominal pain women, abdominal pain men, vaginal bleeding, weakness, fever, dyspnea, syncope, headache, dizziness, GI bleed, back pain, seizure, CVA, palpatations, mental health, musculoskeletal)? @ -Differential Musculoskeletal Muscular strain, contusion, ligament sprain, fracture, arthritis, septic arthritis, bursitis, cellulitis, muscle spasm, nerve compression, DVT, arterial occlusion, herpes zoster, electrolyte abnormality, tumor.... This is not meant to be in all inclusive list EKG interpreted by me (3pts min.). @ -As above X-rays interpreted by me (1pt min.). @ -None done CT interpreted by me (1pt min.). @ -None done U/S interpreted by me (1pt. min.). @ -None done What testing was considered but not performed or refused? (CT, X-rays, U/S, labs)? Why? @ -None What meds were considered but not given or refused? Why? @ -None Did you discuss the management of the patient with other professionals (professionals i.e. , PA, CHECKER IN, lab, RT, psych nurse, drug abuse social worker, cad application support specialist, teacher, college service officer, patient case coordinator)? Give summary @ -I spoke with some physicians agreed to admit the patient. Was smoking cessation discussed for >3mins.? @ -No Was critical care preformed (if so, how long)? @ -No Were there social determinants of health that impacted care today? How? (Homelessness, low income, unemployed, alcoholism, drug addiction, transpo rtation, low edu. Level, literacy, decrease access to med. care, long-term, rehab)? @ -No Was there de-escalation of care discussed even if they declined (Discuss DNR or withdrawal of care, Hospice)? DNR status @ -No What co-morbidities impacted this encounter? (DM, HTN, Smoking, COPD, CAD, Cancer, CVA, ARF, Chemo, Hep., AIDS, mental health diagnosis, sleep apnea, morbid obesity)? @ -None Was patient admitted / discharged? Hospital course, mention meds given and route, prescriptions, significant lab abnormalities, going to OR and other pertinent info. @ -I started the patient on heparin I spoke with some physicians agreed to admit the patient admitted the patient wrote admitting orders Undiagnosed new problem with uncertain prognosis? @ -No Drug Therapy requiring intensive monitoring for toxicity (Heparin, Nitro, Insulin, Cardizem)? @ -No Were any procedures done? @ -No Diagnosis/symptom? @ -DVT leg Acute, or Chronic, or Acute on Chronic? @ -Acute Uncomplicated (without systemic symptoms) or Complicated (systemic symptoms)? @ -Complicated Side effects of treatment? @ -No Exacerbation, Progression, or Severe Exacerbation? @ -No Poses a threat to life or bodily function? How? (Chest pain, USA, OR, pneumonia, PE, COPD, DKA, ARF, appy, cholecystitis, CVA, Diverticulitis, Homicidal, Suicidal, threat to staff... and all critical care pts) @ -Yes this could lead to a pulmonary embolism and significant morbidity or mortality - Lab Data Result diagrams: 08/11/22 16:43 08/11/22 16:43 Lab Results 08/11/22 08/11/22 08/11/22 Range/Units 16:43 16:43 16:43 WBC 7.4 (3.8-10.6) k/uL RBC 3.77 L (3.80-5.40) m/uL Hgb 11.8 D (11.4-16.0) gm/dL Hct 35.3 (34.0-46.0) % MCV 93.6 (80.0-100.0) fL MCH 31.2 (25.0-35.0) pg MCHC 33.4 (31.0-37.0) g/dL RDW 14.3 (11.5-15.5) % Plt Count 527 H (150-450) k/uL MPV 8.1 Neutrophils % 72 % Lymphocytes % 19 % Monocytes % 5 % Eosinophils % 1 % Basophils % 1 % Neutrophils # 5.3 (1.3-7.7) k/uL Lymphocytes # 1.4 (1.0-4.8) k/uL Monocytes # 0.3 (0-1.0) k/uL Eosinophils # 0.1 (0-0.7) k/uL Basophils # 0.1 (0-0.2) k/uL PT 11.2 (9.0-12.0) sec INR 1.1 (<1.2) APTT 24.5 (22.0-30.0) sec Sodium 136 L (137-145) mmol/L Potassium 4.4 (3.5-5.1) mmol/L Chloride 100 (98-107) mmol/L Carbon Dioxide 30 (22-30) mmol/L Anion Gap 6 mmol/L BUN 27 H (7-17) mg/dL Creatinine 1.06 H (0.52-1.04) mg/dL Est GFR (CKD-EPI)AfAm 60 (>60 ml/min/1.73 sqM) Est GFR (CKD-EPI)NonAf 52 (>60 ml/min/1.73 sqM) Glucose 113 H (74-99) mg/dL Calcium 9.1 (8.4-10.2) mg/dL Total Bilirubin 1.5 H (0.2-1.3) mg/dL AST 19 (14-36) U/L ALT 14 (4-34) U/L Alkaline Phosphatase 102 (38-126) U/L Total Protein 6.4 (6.3-8.2) g/dL Albumin 3.5 (3.5-5.0) g/dL Disposition Clinical Impression: Deep vein thrombosis (DVT) of lower extremity Disposition: ADMITTED IP TO THIS HOSP Referrals: Adolfo Lyon DO [Primary Care Provider] - 1-2 days Time of Disposition: 18:36
[2022-08-11] MEDS ORDERED: HEPARIN SOD,PORK IN 0.45% NACL 25,000 UNIT in 0.45% NACL 1 250ML.BAG IV SCH (15:45)
[2022-08-11 17:24] LABS: Basophils # (A) 0.1 k/uL (0-0.2); Basophils % (A) 1 %; Eosinophils # (A) 0.1 k/uL (0-0.7); Eosinophils % (A) 1 %; HCT 35.3 % (34.0-46.0); Lymphocytes # (A) 1.4 k/uL (1.0-4.8); Lymphocytes % (A) 19 %; MCH 31.2 pg (25.0-35.0); MCHC 33.4 g/dL (31.0-37.0); MCV 93.6 fL (80.0-100.0); Mean Platelet Volume 8.1; Monocytes # (A) 0.3 k/uL (0-1.0); Monocytes % (A) 5 %; Neutrophils # (A) 5.3 k/uL (1.3-7.7); Neutrophils % (A) 72 %; Platelet Count 527 k/uL (150-450); RBC 3.77 m/uL (3.80-5.40); RDW 14.3 % (11.5-15.5); WBC 7.4 k/uL (3.8-10.6)
[2022-08-11] MEDS ORDERED: CALCIUM CARBONATE 500 MG CHEWABLE PO PRN (17:35)
[2022-08-11] MEDS ORDERED: LOPERAMIDE 2 MG CAP PO PRN (17:35)
[2022-08-11] MEDS ORDERED: ONDANSETRON 4 MG/2 ML VIAL IVP PRN (17:35)
[2022-08-11] MEDS ORDERED: MELATONIN 3 MG TABLET PO PRN (17:35)
[2022-08-11] MEDS ORDERED: NALOXONE 0.4 MG/ML 1 ML VIAL IV PRN (17:35)
[2022-08-11] MEDS ORDERED: HYDROcodone/APAP 5-325MG 1 EACH TAB PO PRN (17:36)
[2022-08-11 17:37] LABS: HGB 11.8 gm/dL (11.4-16.0)
[2022-08-11 17:38] LABS: INR 1.1 (<1.2); Partial Thromboplastin Time 24.5 sec (22.0-30.0); Prothrombin Time 11.2 sec (9.0-12.0)
--- NOTE | 2022-08-11 17:48 | P.HPIM ---
History of Present Illness H&P Date: 08/11/22 Patient is a 76-year-old female with PMH of hypertension, dyslipidemia was initially hospitalized and discharged on 08/01/22 after an impacted left femoral neck fracture from mechanical fall. She underwent direct anterior left total hip arthroplasty on 07/28/22. She was subsequently discharged to [facility] for rehab. Staff noted that patient had significant swelling in her left lower extremity for which venous Doppler was obtained. Venous Doppler was positive for DVT which prompted them to send the patient to the ED for further evaluation. Patient currently reports well-controlled pain in her left lower extremity. She denies any headache, lower extremity edema, nausea or vomiting, fever or chills, cough, chest pain, shortness of breath, palpitations, changes in urination or bowel habits. No changes in appetite or weight. She denies any dizziness, numbness/weakness/tingling of the extremities. In the ED, her vital signs were stable. CBC showed hemoglobin of 11.8 and platelet count of 527. INR was 1.1. CMP was pending at the time of this note. Patient is admitted for treatment of DVT. Pertinent positives and negatives as discussed in HPI, a complete review of systems was performed and all other systems are negative. General: non toxic, no distress, appears at stated age Derm: warm, dry Head: atraumatic, normocephalic, symmetric Eyes: EOMI, no lid lag, anicteric sclera Mouth: no lip lesion, mucus membranes moist Cardiovascular: S1S2 reg, no murmur, positive posterior tibial pulse bilateral, Lungs: CTA bilateral, no rhonchi, no rales , no accessory muscle use Abdominal: soft, nontender to palpation, no guarding, no appreciable organomegaly Ext: no gross muscle atrophy, left lower extremity significantly swollen compared to the right, no contractures Neuro: CN II-XI grossly intact, no focal neuro deficits Psych: Alert, oriented, appropriate affect #Deep vein thrombosis Chronic conditions: hypertension, dyslipidemia Based on my assessment of this patient, this patient meets a moderate complexity level of care. I have reviewed the following clinical documentation consultant notes: None. I have reviewed the results of the following tests: CBC showed hemoglobin of 11.8 and platelet count of 527. INR was 1.1. I have ordered the following tests: None. I have discussed the care of this patient with the following independent historian: None. I have independently interpreted the following test below: None. I have discussed the management of this patient with the following physician: The case was discussed with the ED physician and decision made to admit the patient for treatment of DVT. This patient has a moderate risk of morbidity due to the following reasons: Patient has an acute diagnosis of deep vein thrombosis in her left lower extremity. Patient be started on Eliquis 10 mg by mouth twice a day. Restart aspirin 81 mg by mouth daily along with Lipitor 10 mg by mouth at bedtime. Restart lisinopril 20 mg daily, hydrochlorothiazide 25 mg by mouth daily, metoprolol 50 mouth daily for history of hypertension. Patient would like to be full code. Past Medical History Past Medical History: CVA/TIA, Hyperlipidemia, Hypertension Additional Past Medical History / Comment(s): CVA around 10 years ago no residual effects History of Any Multi-Drug Resistant Organisms: None Reported Past Surgical History: Hysterectomy, Orthopedic Surgery Additional Past Surgical History / Comment(s): right hip break w/ replacement a bout 10 years ago, total hysterectomy Past Anesthesia/Blood Transfusion Reactions: No Reported Reaction Past Psychological History: No Psychological Hx Reported Smoking Status: Never smoker Past Alcohol Use History: None Reported Past Drug Use History: None Reported Medications and Allergies Home Medications Medication Instructions Recorded Confirmed Type Atorvastatin [Lipitor] 10 mg PO HS 07/27/22 08/11/22 History Lisinopril-Hctz 20-25 mg 1 tab PO HS 07/27/22 08/11/22 History [Zestoretic 20-25] Metoprolol Succinate (ER) [Toprol 50 mg PO DAILY 07/27/22 08/11/22 History XL] HYDROcodone/APAP 5-325MG [[place] 1 tab PO Q6HR PRN #18 tab 08/01/22 08/11/22 Rx 5-325] Acetaminophen [Tylenol 8 Hour] 650 mg PO Q6H PRN 08/11/22 08/11/22 History Apixaban [Eliquis] 5 mg PO BID@0700,1900 08/11/22 08/11/22 History Aspirin [Adult Low Dose Aspirin EC] 81 mg PO DAILY 08/11/22 08/11/22 History Ferrous Sulfate [Iron (65 MG 325 mg PO DAILY 08/11/22 08/11/22 History Elemental)] Sennosides [Senokot] 17.2 mg PO DAILY 08/11/22 08/11/22 History Allergies Allergy/AdvReac Type Severity Reaction Status Date / Time Penicillins Allergy Rash/Headac Verified 08/11/22 15:56 he Physical Exam Vitals: Vital Signs Temp Pulse Resp BP Pulse Ox 08/11/22 14:57 98.3 F 67 16 115/55 99 Intake and Output 08/11/22 08/11/22 08/11/22 06:59 14:59 22:59 Other: Weight 74.843 kg Results CBC & Chem 7: 08/11/22 16:43 Labs: Abnormal Lab Results - Last 24 Hours (Table) 08/11/22 Range/Units 16:43 RBC 3.77 L (3.80-5.40) m/uL Plt Count 527 H (150-450) k/uL
[2022-08-11 17:59] LABS: Albumin 3.5 g/dL (3.5-5.0); Calcium 9.1 mg/dL (8.4-10.2); Potassium 4.4 mmol/L (3.5-5.1); Total Bilirubin 1.5 mg/dL (0.2-1.3); Total Protein 6.4 g/dL (6.3-8.2)
[2022-08-11] MEDS ORDERED: LISINOPRIL-HCTZ 20-25 MG 1 EACH TAB PO SCH (21:00)
[2022-08-11] MEDS ORDERED: ATORVASTATIN 10 MG TAB PO SCH (21:00)
[2022-08-11] MEDS: APIXABAN 5 MG TAB PO SCH (21:50)
[2022-08-11] MEDS: ACETAMINOPHEN TAB 325 MG TAB PO PRN (22:30)
[2022-08-12] MEDS: ACETAMINOPHEN TAB 325 MG TAB PO PRN (06:35)
[2022-08-12] MEDS ORDERED: ASPIRIN 81 MG PO SCH (09:00)
[2022-08-12] MEDS ORDERED: METOPROLOL SUCCINATE (ER) 50 MG TAB.ER.24H PO SCH (09:00)
[2022-08-12] MEDS ORDERED: FERROUS SULFATE 325 MG TAB PO SCH (09:00)
[2022-08-12] MEDS ORDERED: SENNOSIDES 8.6 MG TAB PO SCH (09:00)
[2022-08-12] MEDS: APIXABAN 5 MG TAB PO SCH (09:01)
--- NOTE | 2022-08-12 09:33 | P.DS ---
Providers Date of admission: 08/11/22 17:37 Expected date of discharge: 08/12/22 Attending physician: Ghassan Rios MD [facility] Course: Patient is a 76-year-old female with PMH of hypertension, dyslipidemia, TIA was initially hospitalized and discharged on 08/01/22 after an impacted left femoral neck fracture from mechanical fall. She underwent direct anterior left total hip arthroplasty on 07/28/22. She was subsequently discharged to [facility] for rehab. Staff noted that patient had significant swelling in her left lower extremity for which venous Doppler was obtained. Venous Doppler was positive for DVT which prompted them to send the patient to the ED for further evaluation. Patient currently reports well-controlled pain in her left lower extremity. She denies any headache, lower extremity edema, nausea or vomiting, fever or chills, cough, chest pain, shortness of breath, palpitations, changes in urination or bowel habits. No changes in appetite or weight. She denies any dizziness, numbness/weakness/tingling of the extremities. In the ED, her vital signs were stable. CBC showed hemoglobin of 11.8 and platelet count of 527. INR was 1.1. CMP was pending at the time of this note. Patient is admitted for treatment of DVT. Patient was started on [id number] mg by mouth twice a day and advised that she would have to decrease her dose to 5 mg by mouth twice a day after 7 days. Given her history of TIA/CVA she'll be continued on aspirin as well. She is encouraged to hydrate by mouth with regard to her mild kidney injury. Patient verbalized understanding of the plan. Patient was seen and examined this morning. She is eagerly waiting to go back to rehab. General: non toxic, no distress, appears at stated age Derm: warm, dry Head: atraumatic, normocephalic, symmetric Eyes: EOMI, no lid lag, anicteric sclera Mouth: no lip lesion, mucus membranes moist Cardiovascular: S1S2 reg, no murmur, positive posterior tibial pulse bilateral in the LLE Lungs: CTA bilateral, no rhonchi, no rales , no accessory muscle use Ext: no gross muscle atrophy, left lower extremity significantly swollen compared to the right but decreased since admission, no contractures Neuro: no focal neuro deficits Psych: Alert, oriented, appropriate affect Discharge Diagnosis: #Deep vein thrombosis #Acute kidney injury Chronic conditions: hypertension, dyslipidemia This complex discharge took 35 minutes to complete. Patient Condition at Discharge: Stable Plan - Discharge Summary New Discharge Prescriptions: New Apixaban [Eliquis Starter Pack (for VTE)] 5 - 10 mg PO DIRECTED 30 Days #1 each Continue Atorvastatin [Lipitor] 10 mg PO HS Metoprolol Succinate (ER) [Toprol XL] 50 mg PO DAILY Lisinopril-Hctz 20-25 mg [Zestoretic 20-25] 1 tab PO HS HYDROcodone/APAP 5-325MG [[place] 5-325] 1 tab PO Q6HR PRN #18 tab PRN Reason: Pain Sennosides [Senokot] 17.2 mg PO DAILY Ferrous Sulfate [Iron (65 MG Elemental)] 325 mg PO DAILY Aspirin [Adult Low Dose Aspirin EC] 81 mg PO DAILY Acetaminophen [Tylenol 8 Hour] 650 mg PO Q6H PRN PRN Reason: Pain Discontinued Apixaban [Eliquis] 5 mg PO BID@[id number],1900 Discharge Medication List Atorvastatin [Lipitor] 10 mg PO HS 07/27/22 [History] Lisinopril-Hctz 20-25 mg [Zestoretic 20-25] 1 tab PO HS 07/27/22 [History] Metoprolol Succinate (ER) [Toprol XL] 50 mg PO DAILY 07/27/22 [History] HYDROcodone/APAP 5-325MG [[place] 5-325] 1 tab PO Q6HR PRN #18 tab 08/01/22 [Rx] Acetaminophen [Tylenol 8 Hour] 650 mg PO Q6H PRN 08/11/22 [History] Aspirin [Adult Low Dose Aspirin EC] 81 mg PO DAILY 08/11/22 [History] Ferrous Sulfate [Iron (65 MG Elemental)] 325 mg PO DAILY 08/11/22 [History] Sennosides [Senokot] 17.2 mg PO DAILY 08/11/22 [History] Apixaban [Eliquis Starter Pack (for VTE)] 5 - 10 mg PO DIRECTED 30 Days #1 each 08/12/22 [Rx] Follow up Appointment(s)/Referral(s): Adolfo Lyon DO [Primary Care Provider] - 1-2 days Activity/Diet/Wound Care/Special Instructions: Diet: Cardiac Take 12 more doses of Eliquis 10 mg by mouth twice a day followed by 5 mg by mouth twice a day. Discharge Disposition: TRANSFER TO SNF/ECF
[2022-08-12 12:49] VITALS: BP 158/91; PULSE 68; TEMP 98.6
== END 2022-08-12 14:36 ==
LOC: EC 14:42 → 4SSUR 17:37
PROVIDERS: ADMIT Family Medicine; ATTEND Family Medicine
DX: I82.402 Acute embolism and thrombosis of unspecified deep veins of left lower extremity (principal); N17.9 Acute kidney failure, unspecified; E78.5 Hyperlipidemia, unspecified; I10 Essential (primary) hypertension; S72.002D Fracture of unspecified part of neck of left femur, subsequent encounter for closed fracture with routine healing; W18.30XD Fall on same level, unspecified, subsequent encounter; Z79.01 Long term (current) use of anticoagulants; Z79.82 Long term (current) use of aspirin; Z79.899 Other long term (current) drug therapy; Z88.0 Allergy status to penicillin; Z96.642 Presence of left artificial hip joint; Z86.73 Personal history of transient ischemic attack (TIA), and cerebral infarction without residual deficits; Z90.710 Acquired absence of both cervix and uterus
CPT/HCPCS: 99284; 36415; 97162; 97166; 80053; 85025; 85610; 85730; G0378 ×2